=== PATIENT | male | born 1930 | race Caucasian/White ===

== ENCOUNTER → 2018-08-14 | Outpatient (CLI) | payer MEDICARE, OTHER ==
[2015-06-14 15:13] VITALS: BP 111/54
[~2018-08-14] MED LIST: AMLO5TAB10 PO; ATOR10TA60 PO; DABI150C PO; FURO-69 PO; OMEP20CA9 PO; REGADENOSON 0.4 MG/5 ML DISP.SYRIN. IV ONE; SOTA80TA48 PO; TAMS0.4C2 PO
--- NOTE | 2018-08-14 15:10 | RAD ---
MR#: [id number] Date of Study: 08/14/2018 Ordering Physician: XOCHILT HAWLEY Referring Physician: BINTA IZAGUIRRE Tech: Naya Burrows RT (R) (N) APPROVED REPORT Test Type: Pharmacological Stress Nurse/Tech: Alexa Holt R.N./Christi Feliciano RN Test Indications: Afib, CAD Cardiac History: Hypertension, CAD, AFIB Medications: See Electronic Medical Record Medical History: See Electronic Medical Record Resting ECG: Afib Resting Heart Rate: 86 bpm Resting Blood Pressure: 128/72mmHg Pretest Chest Pain: No chest pain Nurse/Tech Notes Lungs CTA, Heart rate irregular Consent: The procedure was explained to the patient in lay terms. Informed consent was witnessed. Jass eout was entered into [employer]. History and Stress Test performed by RT Lluvia (R) (N) Pharm. Details Pharmacologic stress testing was performed using 0.4mg per 5ml of regadenoson given intravenously ove r 7-10 seconds. Stress Symptoms Dyspnea, Chest pain 8/10 pressure, chest pain resolved at end of test. POST EXERCISE Reason for Termination: Infusion complete Max HR: 136 bpm Max Blood Pressure: 136/66mmHg Chest Pain: No. Arrhythmia: No. ST Change: No. INTERPRETATION Stress EKG Conclusion: Baseline EKG showed atrial fibrillation. No ischemic changes at peak stress. No arrhythmias. Imaging Protocol IMAGE PROTOCOL: Rest Tc-99m/stress Tc-99m 1 day Rest: Stress: Viability: Radiopharm.Tc99m YgrpzsjxvJd24k Sestamibi Dose11.2mCi 32mCi Duration 15min. 10min. Img Date 08/14/2018 08/14/2018 Inj-Img Dcvi62qav. 60min. Rest Admin Site:IV - Right WristAdministrator:JUAN ANTONIO Burrows Stress Admin Site: IV - Right WristAdministrator: RT Noa Teixeira)(N) STRESS DATA End Diast. Vol.110.0mlAv. Heart Rate91.0bpm End Syst. Vol.28.0mlCO Index BSA0.0L/min Myocardial Gcsu062.0gEject. Jllkdnze46.0% Stress Rates Pk. Fill Rate4.49EDV/secLVtime Pk. Fill 184.71msec Pk. Empty Rate4.20ESV/secLVtime Pk. Eject86.68msec 1/3 Pk. Fill2.26EDV/sec Stress Scores Regional WT0.00Summed WT5.00 Regional WM0.00Summed WM0.00 Study quality was good. Left Ventricular size was Normal at Rest and Stress. Lung uptake was . Left Ventricular ejection fraction is 75%. The rest and stress images show normal perfusion, normal contraction and thickening. LV Perf. Quant 17 Seg. SSS0.00 17 Seg. SRS7.00 17 Seg. SDS0.00 Stress Defect Extent (% LAD)0.00Rest Defect Extent (% LAD)0.60Rev. Defect Extent (% LAD)0.00 Stress Defect Extent (% LCX) 0.00Rest Defect Extent (% LCX)7.50Rev. Defect Extent (% LCX)0.00 Stress Defect Extent (% RCA)0.00Rest Defect Extent (% RCA)1.10Rev. Defect Extent (% RCA)0.00 Stress Defect Extent (% IAN)0.00Rest Defect Extent (% IAN)5.70Rev. Defect Extent (% IAN)0.00 Conclusion 1. Regadenoson cardioisotope stress test did not show any evidence of ischemia or infarct. 2. Normal left ventricular systolic function with ejection fraction calculated at 75%. 3. Low risk for cardiac events. Signed by : Xochilt Hawley, Electronically Approved : 08/14/2018 15:08:19
== END | disposition home or self-care (01) ==
LOC: NM 08:52
PROVIDERS: ATTEND Internal Medicine Cardiovascular Disease
DX: I25.10 Atherosclerotic heart disease of native coronary artery without angina pectoris (principal); I48.91 Unspecified atrial fibrillation; I10 Essential (primary) hypertension; Z79.01 Long term (current) use of anticoagulants; Z85.038 Personal history of other malignant neoplasm of large intestine
CPT/HCPCS: 78452; 93017; 96374; A9500; J2785

== ENCOUNTER → 2018-08-16 | Outpatient (CLI) | payer MEDICARE ==
[2015-06-14 15:13] VITALS: BP 111/54
[~2018-08-16] MED LIST changes: +OMEP20CA10 PO; -OMEP20CA9 PO; -REGADENOSON 0.4 MG/5 ML DISP.SYRIN. IV ONE
--- NOTE | 2018-08-16 12:37 | CARD ---
MR#: [id number] Date of Study: 08/16/2018 Ordering Physician: XOCHILT BETANCUR, Referring Physician: XOCHILT BETANCUR, Tech: Lulu Gorman APPROVED REPORT EXAM: Two-dimensional and M-mode echocardiogram with Doppler and color Doppler. Other Information Quality : Average INDICATION Atrial Fibrillation 2D DIMENSIONS RVDd3.6 (2.9-3.5cm)Left Atrium(2D)5.0 (1.6-4.0cm) IVSd1.3 (0.7-1.1cm)Aortic Root(2D)3.3 (2.0-3.7cm) LVDd5.8 (3.9-5.9cm)LVOT Diameter2.5 (1.8-2.4cm) PWd1.4 (0.7-1.1cm)LVDs3.0 (2.5-4.0cm) FS (%) 47.7 %SV130.6 ml LVEF(%)78.5 (>50%) Aortic Valve AoV Peak Hamlet.106.3cm/sAoV VTI16.8cm AO Peak GR.4.5mmHgLVOT Peak [place].65.3cm/s LVOT VTI 12.56cmAO Mean GR.2mmHg ANGEL (VMAX)2.97tx8GTL (VTI)3.59cm2 Pulmonary Valve PV Peak Nopetawv88.6cm/sPV Peak Grad.4mmHg Tricuspid Valve TR P. Wtpugkut612xy/sRAP ACGOHJUM9qcWc TR Peak Gr.48jxLbYSVF20wjIh Pulmonary Vein S1 Xlkjvuro18.3cm/sD2 Ijjgvfcd70.7cm/s PVa hcifkrir601fouo LEFT VENTRICLE The left ventricle is normal size. There is moderate concentric left ventricular hypertrophy. The lef t ventricular systolic function is normal. The ejection fraction is estimated at 55-60%. There is nor mal LV segmental wall motion. Diastology indeterminate due to atrial fribrillation. RIGHT VENTRICLE The right ventricle is normal size. There is normal right ventricular wall thickness. The right ventr icular systolic function is normal. ATRIA The left atrium is moderately dilated. The right atrium is borderline dilated. The interatrial septum is intact with no evidence for an atrial septal defect or patent foramen ovale as noted on 2-D or Do ppler imaging. AORTIC VALVE The aortic valve is normal in structure and function. Doppler and Color Flow revealed trace aortic re gurgitation. There is no significant aortic valvular stenosis. MITRAL VALVE The mitral valve is normal in structure and function. There is no evidence of mitral valve prolapse. There is no mitral valve stenosis. Doppler and Color-flow revealed trace mitral regurgitation. TRICUSPID VALVE The tricuspid valve is normal in structure and function. Doppler and Color Flow revealed trace to mil d tricuspid regurgitation with an estimated PAP of 34 mmHg. There is no tricuspid valve stenosis. PULMONIC VALVE The pulmonary valve is normal in structure and function. Doppler and Color Flow revealed mild pulmoni c valvular regurgitation. GREAT VESSELS The aortic root is normal in size. The IVC is normal in size and collapses >50% with inspiration. PERICARDIAL EFFUSION There is no evidence of significant pericardial effusion. Critical Notification Critical Value: No <Conclusion> The left ventricular systolic function is normal. The ejection fraction is estimated at 55-60%. There is normal LV segmental wall motion. The left atrium is moderately dilated. Trace mitral regurgitation. Trace to mild tricuspid regurgitation with an estimated PAP of 34 mmHg. There is no evidence of significant pericardial effusion. Signed by : Xochilt Betancur, Electronically Approved : 08/16/2018 12:35:35
--- NOTE | 2018-08-16 13:27 | RAD ---
MR#: [id number] Date of Study: 08/16/2018 Ordering Physician: XOCHILT HAWLEY, Referring Physician: XOCHILT HAWLEY, Tech: Lulu Hughes RDMS, SIRISHAT, RTR APPROVED REPORT Patient Location : OUT-PATIENT Indications Lower Extremity Edema : Bilateral Greater Saphenous Veins (GSV) Significant venous relux noted in the RIGHT GSV at the following levels : Superficial Femoral Junctio n, Proximal Thigh, Mid Thigh, Distal Thigh, Proximal Calf, Mid Calf, Distal Calf Significant venous relux noted in the LEFT GSV at the following levels : Superficial Femoral Junction , Proximal Thigh, Mid Thigh, Distal Thigh, Proximal Calf, Mid Calf, Distal Calf Lesser Saphenous Veins (LSV) Significant venous reflux is noted in the Bilateral LSV. Findings Grayscale images of the bilateral saphenofemoral junctions, greater and lesser saphenous veins do not reveal any obvious evidence of thrombus. Reflux is noted in the bilateral greater saphenous veins. On the right the great saphenous vein measu res 6.1 mm and has a reflux time of 4.2 seconds. On the left the great saphenous vein measures 7.7 mm and a reflux time of 1.8 seconds. The bilateral lesser saphenous veins show evidence of reflux with the right lesser saphenous vein renaldo suring 3.3 mm and having a reflux time of 4.2 seconds in the left lesser saphenous vein measuring 4.3 mm with a reflux time of 3.7 seconds. Critical Notification Critical Value: No <Conclusion> Significant reflux noted in the bilateral greater and lesser saphenous veins. Signed by : Nishant Chávez, Electronically Approved : 08/16/2018 13:24:53
--- NOTE | 2018-08-16 13:31 | RAD ---
MR#: [id number] Date of Study: 08/16/2018 Ordering Physician: XOCHILT HAWLEY, Referring Physician: XOCHILT HAWLEY Tech: Lulu Hughes RDMS, SIRISHAT, RTR APPROVED REPORT Patient Location: OUT-PATIENT Indications Peripheral Vascular Disease with numbness and burning in the feet VELOCITY AND DOPPLER WAVEFORM ANALYSIS RIGHT cm/secWaveformSeverity LEFT cm/secWaveform Severity pCFA 76.5pCFA 61.0 Prof Fem Art. 50.0Prof Fem Art. 65.2 Fem Art Prox. 74.7Fem Art Prox. 63.6 Fem Art Mid. 113.5Fem Art Mid. 61.5 Fem Art Dist. 83.9Fem Art Dist. 138.8 Pop Art(AK) 45.8Pop Art(AK) 55.0 MACHINE GUIDE BASE WINDER Dist. 71.5PTA Dist. 118.2 Per Art Prox. 81.0Per Art Prox. 30.1 MAUREEN Prox. 43.5ATA Prox. 34.1 DPA 71.5DPA 70.1 Findings Grayscale images of the bilateral lower ext arterial vessels reveal mild to moderate diffuse atherosc lerotic plaque. Spectral waveforms and color Doppler within the right lower extremity and left lower ext arterial leonid e to the ankle level are mostly biphasic and triphasic. No focal high-grade stenosis at that identifi ed. There is three vessel run-off below the knee. Critical Notification Critical Value: No <Conclusion> No significant lower extremity arterial disease. Signed by : Nishant Chávez, Electronically Approved : 08/16/2018 13:29:03
== END | disposition home or self-care (01) ==
LOC: US 08:42
PROVIDERS: ATTEND Internal Medicine Cardiovascular Disease
DX: I70.293 Other atherosclerosis of native arteries of extremities, bilateral legs (principal); I51.7 Cardiomegaly; I48.2 Chronic atrial fibrillation
CPT/HCPCS: 93306; 93925; 93970

== ENCOUNTER → 2018-09-04 | Outpatient (CLI) | payer MEDICARE ==
[2015-06-14 15:13] VITALS: BP 111/54
--- NOTE | 2018-09-05 11:53 | RAD ---
MR#: [id number] Date of Study: 09/04/2018 Ordering Physician: XOCHILT HAWLEY, Referring Physician: XOCHILT HAWLEY, Tech: Lulu Hughes RDMS, SIRISHAT, RTR APPROVED REPORT Bilateral Lower Extremity Venous Study for DVT Patient Location: OUT-PATIENT Indications Lower Extremity Edema: Bilateral Findings Bilateral greater saphenous veins appear to be successfully ablated. The bilateral lower extremity deep veins were evaluated for thrombus with color Doppler, spectral and grayscale images. On the right the grayscale images of the common femoral, superficial femoral and popliteal veins do n ot demonstrate any evidence of thrombus and these veins appear to be compressible. The below-knee vei ns were not well visualized but grossly appear to be compressible. Spectral imaging and color Doppler do not reveal any evidence of obstruction to flow with normal respirophasic variation above the knee . Below the knee there is spontaneous flow noted. On the left, the grayscale images of the common femoral, superficial femoral and popliteal veins do n ot demonstrate any evidence of thrombus and these veins appear to be compressible. The below-knee vei n grossly appear to be compressible. Spectral imaging and color Doppler do not reveal any evidence of obstruction to flow with normal respirophasic variation above the knee. The below-knee veins demonst rate spontaneous flow. Critical Notification Critical Value: No <Conclusion> 1. Successful GSV ablation. 2. No evidence of DVT. Signed by : Nishant Chávez, Electronically Approved : 09/05/2018 11:52:53
== END | disposition home or self-care (01) ==
LOC: US 15:42
PROVIDERS: ATTEND Internal Medicine Cardiovascular Disease
DX: I87.2 Venous insufficiency (chronic) (peripheral) (principal); R60.0 Localized edema
CPT/HCPCS: 93970

== ENCOUNTER → 2020-01-21 | Outpatient (CLI) | payer MEDICARE ==
[2015-06-14 15:13] VITALS: BP 111/54
[~2020-01-21] MED LIST changes: +APIX5TAB PO; +FURO-68 PO; +METO25TA4 PO; -OMEP20CA10 PO; +OMEP20CA16 PO; +POTA10TA6 PO; +TAMS0.4C97 PO
--- NOTE | 2020-01-22 07:56 | CARD ---
MR#: [id number] Date of Study: 01/21/2020 Ordering Physician: XOCHILT HAWLEY, Referring Physician: XOCHILT HAWLEY Tech: Ritika Garcia RDCS APPROVED REPORT EXAM: Two-dimensional and M-mode echocardiogram with Doppler and color Doppler. Other Information Quality : Good Rhythm : Atrial Fibrillation INDICATION Permanent Atrial Fibrillation 2D DIMENSIONS RVDd3.2 (2.9-3.5cm)Left Atrium(2D)5.6 (1.6-4.0cm) IVSd1.2 (0.7-1.1cm)Aortic Root(2D)3.1 (2.0-3.7cm) LVDd5.2 (3.9-5.9cm)LVOT Diameter2.4 (1.8-2.4cm) PWd1.2 (0.7-1.1cm)LVDs4.0 (2.5-4.0cm) FS (%) 23.7 %SV60.6 ml LVEF(%)46.9 (>50%) Aortic Valve AoV Peak Hamlet.117.3cm/sAoV VTI18.3cm AO Peak GR.5.5mmHgLVOT Peak [place].68.2cm/s LVOT VTI 13.02cmAO Mean GR.3mmHg ANGEL (VMAX)2.68cu6GFO (VTI)3.14cm2 Mitral Valve MV E Algpdnvs37.8cm/sMV DECEL RROU794gw MV A Fbswnbbo13.9cm/sMV OUZ96qi E/A Ratio2.1MVA (PHT)4.65cm2 TDI E/Lateral E'19.7E/Medial E'16.4 Tricuspid Valve TR P. Bmzgktvl516vm/sRAP KTKUKEWS9opTk TR Peak Gr.08ksBrHVEU83ebYs Pulmonary Vein S1 Xlsmcsxb72.6cm/sD2 Ycydbcua08.2cm/s LEFT VENTRICLE The left ventricle is normal size. There is mild concentric left ventricular hypertrophy. The left ve ntricular systolic function is normal. The Ejection Fraction is 55-60%. There is normal LV segmental wall motion. RIGHT VENTRICLE The right ventricle is normal size. The right ventricular systolic function is normal. ATRIA The left atrium is moderately dilated. The right atrium size is normal. The interatrial septum is int act with no evidence for an atrial septal defect or patent foramen ovale as noted on 2-D or Doppler i maging. AORTIC VALVE The aortic valve is calcified but opens well. Doppler and Color Flow revealed trace aortic regurgitat ion. There is no significant aortic valvular stenosis. MITRAL VALVE The mitral valve is calcified but opens well. There is no evidence of mitral valve prolapse. There is no mitral valve stenosis. Doppler and Color-flow revealed mild mitral regurgitation. TRICUSPID VALVE The tricuspid valve is normal in structure and function. Doppler and Color Flow revealed trace to mil d tricuspid regurgitation. The PA pressure was estimated at 34 mmHg. There is no tricuspid valve sten osis. PULMONIC VALVE The pulmonic valve is not well visualized. Doppler and Color Flow revealed trace pulmonic valvular re gurgitation. There is no pulmonic valvular stenosis. GREAT VESSELS The aortic root is normal in size. The ascending aorta is mildly dilated at 3.7 cm. The IVC is normal in size and collapses >50% with inspiration. PERICARDIAL EFFUSION There is no evidence of significant pericardial effusion. Critical Notification Critical Value: No <Conclusion> The left ventricular systolic function is normal. The Ejection Fraction is 55-60%. There is normal LV segmental wall motion. The left atrium is moderately dilated. Mild mitral regurgitation. Trace to mild tricuspid regurgitation. The PA pressure was estimated at 34 mmHg. There is no evidence of significant pericardial effusion. Signed by : Xochitl Hawley, Electronically Approved : 01/22/2020 07:55:24
== END | disposition home or self-care (01) ==
LOC: ECHO 14:03
PROVIDERS: ATTEND Internal Medicine Cardiovascular Disease
DX: I08.3 Combined rheumatic disorders of mitral, aortic and tricuspid valves (principal); I48.11 Longstanding persistent atrial fibrillation
CPT/HCPCS: 93306

== ENCOUNTER 2020-01-24 10:24 | Inpatient (IN) | payer MEDICARE ==
[~2020-01-24] VITALS: Ht 177.8 cm; Wt 105.0 kg
[~2020-01-24 10:24] MED LIST changes: -APIX5TAB PO; -FURO-68 PO; -METO25TA4 PO; -POTA10TA6 PO; -TAMS0.4C97 PO
--- NOTE | 2020-01-24 11:38 | PHYS DOC ---
Past Medical History Past Medical History: A-Fib, Cancer, Hypertension, Other Additional Past Medical Histor: COLON CANCER, SKIN CANCER Past Surgical History: Cancer Surgery, Knee Replacement Additional Past Surgical Histo: COLON CANCER SURGERY Smoking Status: Former Smoker Alcohol Use: None General Adult EDM: Chief Complaint: MECHANICAL FALL HPI: HPI: Patient is a 89 year old male who presents with daughter brings patient in today and states that on he got up without his walker and try to turn and lost his balance and fell. She states he supposed to use his walker but at times will get up without it. She states that he has fallen twice this week. She states the first time the fall was not seen but the mother heard him fall on the hardwood floor. She states that the rest of the week since he has been able to get up and walk with his walker but today could not stand it. She states that he has right knee swelling which is 2+ and pain with standing. She states that he also has a skin tear on the right lateral forearm that they have been covering and using antibiotic ointment. Patient seems somewhat unreliable when asking about pain as he does not answer me right away and laughs and states ya it has been hurting. He does follow direction but I must show him first what I need him to do and then he does it. Daughter states that he is acting normal for himself. He also complains of elbow pain with movement and is unable to fully extend the elbow straight. Right elbow is 1+ swollen. I also noticed that the patients right leg is outward rotated and when I palpated the hip and pelvis and moved at the joint he does not state that he has any pain. The hip does not look deformed or swollen. Vital signs are wnl. No redness or heat to the joints effected. Daughter and patient denies loc, dizziness, headache, vision changes, abdominal pain, diarrhea, fever, chest pain, soa, nausea, vomiting. Patient could not give me a number or a quality of pain. Again daughter states this is his normal. Patient is in no distress at this time and is smiling as I am examining him. He seems to be in no distress or pain. Daughter states as long as the patient is laying down he seems to be in no pain. Review of Systems: Review of Systems: Constitutional: Denies fever or chills. Fall. [] Eyes: Denies change in visual acuity. [] HENT: Denies nasal congestion or sore throat. [] Respiratory: Denies cough or shortness of breath. [] Cardiovascular: Denies chest pain or edema. Swelling to the right knee. [] GI: Denies abdominal pain, nausea, vomiting, bloody stools or diarrhea. [] : Denies dysuria. [] Musculoskeletal: Denies back pain. Right knee, right elbow joint pain. Not fully extend the right elbow. [] Integument: Denies rash. Right lateral forearm skin tear. [] Neurologic: Denies headache, focal weakness or sensory changes. [] Endocrine: Denies polyuria or polydipsia. [] Lymphatic: Denies swollen glands. [] Psychiatric: Denies depression or anxiety. [] Heart Score: Risk Factors: Risk Factors: DM, Current or recent (<one month) smoker, HTN, HLP, family history of CAD, obesity. Risk Scores: Score 0 - 3: 2.5% MACE over next 6 weeks - Discharge Home Score 4 - 6: 20.3% MACE over next 6 weeks - Admit for Clinical Observation Score 7 - 10: 72.7% MACE over next 6 weeks - Early Invasive Strategies Allergies: Allergies: Allergies Coded Allergies Type Severity Reaction Last Updated Verified No Known Drug Allergies 04/30/15 No Physical Exam: PE: Constitutional: Well developed, well nourished, no acute distress, non-toxic appearance. [] HENT: Normocephalic, atraumatic, bilateral external ears normal, oropharynx moist, no oral exudates, nose normal. [] Eyes: PERRLA, EOMI, conjunctiva normal, no discharge. [] Neck: Normal range of motion, no tenderness, supple, no stridor. [] Cardiovascular:Heart rate regular rhythm, no murmur [] Lungs & Thorax: Bilateral breath sounds clear to auscultation [] Abdomen: Bowel sounds normal, soft, no tenderness, no masses, no pulsatile masses. [] Skin: Warm, dry, no erythema, no rash. [] Back: No tenderness, no CVA tenderness. [] Extremities: No tenderness, no cyanosis, no clubbing, right knee and elbow ROM not intact, right knee 2+ edema. [] Neurologic: Alert and oriented X 3, normal motor function, normal sensory function, no focal deficits noted. [] Psychologic: Affect normal, judgement normal, mood normal. [] Current Patient Data: Vital Signs: Vital Signs Date Time Temp Pulse Resp B/P (MAP) Pulse Ox O2 Delivery O2 Flow Rate FiO2 01/24/20 11:00 97.9 112 20 153/77 (102) 97 Room Air 97.9 EKG: EK and read by Dr. Mayers as A. fib and no STEMI. [] Radiology/Procedures: Radiology/Procedures: [] Impression: [facility] [address] [place] [address] IMAGING REPORT Signed PATIENT: MARY LOU COLEMAN ACCOUNT: [id number] : 1930 LOCATION: ER AGE: 89 SEX: M EXAM STATUS: REG ER ORD. PHYSICIAN: JAQUELIN ALEXANDER APRN REASON: fall on , pain to right elbow PROCEDURE: ELBOW RIGHT 2V Examination: ELBOW RIGHT 2V History: Reason: fall on , pain to right elbow / Spl. Instructions: / History: Comparison/Correlation: None Findings: 2 views of the right elbow were obtained. Frontal view is limited due to partial flexion of the adrenal. True 90 degree lateral view of the right elbow is not provided. Osteopenia is present. Advanced degenerative changes of the right elbow joint are present. Spurring of the radial head noted. No displaced fracture or bone destruction. Minimal enthesopathy at the distal triceps tendon attachment site is noted. Bony densities anterior to the right elbow are present and of indeterminate significance. Impression: Advanced degenerative changes about the elbow. No suspicious fracture or bone destruction on this limited exam. Electronically signed by: Zafar Antonio MD (01/24/2020 12:10 PM) [id number] DICTATED and SIGNED BY: ZAFAR ANTONIO MD DATE: 01/24/20 1210 [facility] [address] [place] [address] IMAGING REPORT Signed PATIENT: MARY LOU COLEMAN ACCOUNT: [id number] : 1930 LOCATION: ER AGE: 89 SEX: M EXAM STATUS: REG ER ORD. PHYSICIAN: JAQUELIN ALEXANDER APRN REASON: fall PROCEDURE: CT HEAD AND CERVICAL SPINE WO Examination: CT HEAD AND CERVICAL SPINE WO History: Fall, pain Comparison/Correlation: None Findings: Axial images of the head and cervical spine were obtained without contrast. Sagittal and coronal reformatted images of the cervical spine were provided. Atrophy is present. Chronic ischemic change of the white matter is noted. No intracranial hemorrhage, midline shift, or mass effect. No depressed skull fracture. Atlantoaxial joint degenerative remodeling is advanced. Minimal anterolisthesis of C3 in relation to C4 is present. Minimal retrolisthesis of C5 in relation C6 noted. Minimal anterolisthesis of C7-T1 noted. Minimal retrolisthesis of C5 in relation to C6 is present. Severe disc space narrowing from C5 to T1 is present. Bony encroachment on neural foramina is especially seen at C5-6 bilaterally with severe neural foraminal narrowing. Facet joint degenerative narrowing bilaterally is present. Temporomandibular joint degenerative narrowing bilaterally is present with spurring. Disc osteophyte complex at C5-6 is present. Mild spinal canal stenosis is present at this level. 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 Impression: No intracranial hemorrhage. Advanced degenerative changes of the cervical spine. No fracture or suspicious malalignment. PQRS Compliance Statement: One or more of the following individualized dose reduction techniques were utilized for this examination: 1. Automated exposure control 2. Adjustment of the mA and/or kV according to patient size 3. Use of iterative reconstruction technique Electronically signed by: Zafar Antonio MD (01/24/2020 12:08 PM) [id number] DICTATED and SIGNED BY: ZAFAR ANTONIO MD DATE: 01/24/20 1208 [facility] [address] [place], [place] [id number] IMAGING REPORT Signed PATIENT: MARY LOU COLEMAN ACCOUNT: [id number] : 1930 LOCATION: ER AGE: 89 SEX: M EXAM STATUS: REG ER ORD. PHYSICIAN: JAQUELIN ALEXANDER APRN REASON: ams PROCEDURE: PORTABLE CHEST 1V Examination: PORTABLE CHEST 1V History: Reason: ams / Comparison/Correlation: None Findings: Semiupright AP frontal view the chest was obtained. Motion at the upper thoracic level may limit assessment. Heart size is borderline and this may be technique related. Pulmonary vasculature is within normal limits. No pneumothorax, infiltrate, or significant pleural effusion. Costophrenic angles are not fully included. Bony structures are intact. Severe degenerative change of the right glenohumeral joint is present. Impression: No acute disease. Electronically signed by: Zafar Antonio MD (01/24/2020 12:45 PM) [id number] DICTATED and SIGNED BY: ZAFAR ANTONIO MD DATE: 01/24/20 1245 [facility] [address] [place], [place] [id number] IMAGING REPORT Signed PATIENT: MARY LOU COLEMAN ACCOUNT: [id number] : 1930 LOCATION: ER AGE: 89 SEX: M EXAM STATUS: REG ER ORD. PHYSICIAN: JAQUELIN ALEXANDER APRN REASON: fall, RT ARM PAIN PROCEDURE: FOREARM RIGHT FOREARM RIGHT 01/24/2020 11:22 AM INDICATION: Fall, right arm pain COMPARISON: None available. TECHNIQUE: 2 views of the right forearm are provided. FINDINGS/ IMPRESSION: There is no acute fracture or dislocation. Joint spaces are maintained. Bone mineralization is within normal limits. Regional soft tissues are within normal limits. There is no soft tissue gas or osseous erosion. No radiopaque foreign body. Vascular calcifications are present. Electronically signed by: Kobe Aguilera MD (01/24/2020 12:48 PM) [facility] DICTATED and SIGNED BY: KOBE AGUILERA MD DATE: 01/24/20 1248 [facility] [address] [place], [place] [id number] IMAGING REPORT Signed PATIENT: MARY LOU COLEMAN ACCOUNT: [id number] : 1930 LOCATION: ER AGE: 89 SEX: M EXAM STATUS: REG ER ORD. PHYSICIAN: JAQUELIN ALEXANDER APRN REASON: fall, BACK PAIN PROCEDURE: THORACIC SPINE 3V LUMBAR SPINE 2-3V, THORACIC SPINE 3V 01/24/2020 11:22 AM INDICATION: Fall, back pain COMPARISON: None available. TECHNIQUE: 3 views of the thoracic spine 3 views lumbar spine are provided. FINDINGS/ IMPRESSION: 1. Minimal dextro convex curvature of the thoracic spine centered at T4-T5. Mild disc height loss at the upper thoracic spine. Moderate anterior and lateral marginal osteophytosis the thoracic spine. No acute fracture or compression deformity is visualized. 2. There are 5 nonrib-bearing lumbar type vertebral bodies. Minimal dextro convex curvature of the lumbar spine centered at L3-L4. There is minimal retrolisthesis of L2 on L3 and L3 on L4. Grade 1 anterolisthesis of L4 on L5. Moderate disc height loss is identified at L2-L3 and L4-L5. Minimal inferior endplate concavity at L2 without significant height loss (age indeterminate). If there is clinical concern for acute compression deformity, further evaluation with MRI may be of benefit. Moderate intramarginal osteophytosis at L3-L4. Moderate to advanced facet arthropathy is noted. Versus portions of the sacrum appear intact. Electronically signed by: Kobe Aguilera MD (01/24/2020 12:51 PM) [facility] DICTATED and SIGNED BY: KOBE AGUILERA MD DATE: 01/24/[address] [place] [address] [address] [place] [address] IMAGING REPORT Signed PATIENT: MARY LOU COLEMAN ACCOUNT: [id number] : 1930 LOCATION: ER AGE: 89 SEX: M EXAM STATUS: REG ER ORD. PHYSICIAN: JAQUELIN ALEXANDER APRN REASON: fall, ZEHRA HIP PAIN PROCEDURE: HIP BILATERAL WITH PELVIS Examination: HIP BILATERAL WITH PELVIS History: Reason: fall, ZEHRA HIP PAIN / Spl. Instructions: / History: Comparison/Correlation: No Findings: Frontal view of the pelvis was obtained. Frontal and frog-leg lateral views of the right hip were obtained. Frontal and lateral views of the left hip was provided. Mild cingulate joint degenerative changes present. Symmetric. No displaced fracture or bone destruction. Osteopenia is present. Subtle sclerotic involvement of the femoral heads bilaterally is evident raising question of mild avascular necrosis. Femoral head contours are unremarkable Impression: No acute processes. Consider further imaging if occult fracture is a persistent concern. Electronically signed by: Zafar Antonio MD (01/24/2020 12:48 PM) [id number] DICTATED and SIGNED BY: ZAFAR ANTONIO MD DATE: 01/24/20 1248 [facility] [address] [place] [address] IMAGING REPORT Signed PATIENT: MARY LOU COLEMAN ACCOUNT: [id number] : 1930 LOCATION: ER AGE: 89 SEX: M EXAM STATUS: REG ER ORD. PHYSICIAN: JAQUELIN ALEXANDER APRN REASON: FALL, RT KNEE PAIN, SWELLING PROCEDURE: KNEE RIGHT 3V KNEE RIGHT 3V 01/24/2020 1:14 PM INDICATION: Fall, right knee pain COMPARISON: None available. TECHNIQUE: 3 views of the right knee are provided. FINDINGS/ IMPRESSION: 1. No acute fracture or dislocation. Large knee joint effusion. 2. 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 Mild lateral femorotibial joint space narrowing and marginal osteophytosis. Severe patellofemoral joint space narrowing with marginal osteophytosis. Patellar is poorly visualized, although favored to be intact. 3. Vascular calcifications are present. Regional soft tissue swelling is noted. Tibia and fibula appear intact. Electronically signed by: Kobe Aguilera MD (01/24/2020 12:52 PM) [facility] DICTATED and SIGNED BY: KOBE AGUILERA MD DATE: 01/24/20 1251 Course & Med Decision Making: Course & Med Decision Making Pertinent Labs and Imaging studies reviewed. (See chart for details) Alert and oriented to himself and place. Patient was not able to tell me the year or month. Skin otherwise pink warm and dry. Abdomen is soft nontender and there is no bruising. No crepitus or pain elicited over the chest or the ribs. Lungs are clear to auscultation all lobes. Full range of motion of shoulders bilaterally without swelling or deformities. No tenderness is elicited or bruising seen to his back or spine. He has full range of motion of his neck and there is no tenderness or bruising. PERRLA. Patient does follow me in the room with his eyes. Patient does not seem to be in any pain and is smiling at me while I am examining the patient. He denies any pain while sitting in the bed. It is discussed with the daughter about admission. She agrees that it is safest for the patient to be admitted for antibiotics and physical therapy evaluation. She states that no one can be there to take care of him throughout the night and last night he sat in his brief and urinated on himself due to not being able to get up. Son states to Lakeisha GALAN that he has been acting more disoriented lately. With reexamination, patient is sleeping and in no distress. I have spoken to the patients sons and they states he has been sleeping and looks to be comfortable and in no pain. I agree with the sons as the patient is in no distress at this time. I have spoken to Dr Garcia for admission. [] Radha Disclaimer: Radha Disclaimer: This electronic medical record was generated, in whole or in part, using a voice recognition dictation system. Departure Departure Impression: Primary Impression: UTI (urinary tract infection) Qualified Codes: N39.0 - Urinary tract infection, site not specified Additional Impression: AMS (altered mental status) Qualified Codes: R41.82 - Altered mental status, unspecified Disposition: ADMITTED INPATIENT Admitting Physician: Venancio Garcia Condition: STABLE Referrals: VENANCIO GARCIA MD (PCP) Justicifation of Admission Dx: Justifications for Admission: Justification of Admission Dx: Yes Comments: JAQUELIN [employer] Jan 24, 2020 11:38
--- NOTE | 2020-01-24 12:10 | RAD ---
Examination: CT HEAD AND CERVICAL SPINE WO History: Fall, pain Comparison/Correlation: None Findings: Axial images of the head and cervical spine were obtained without contrast. Sagittal and coronal reformatted images of the cervical spine were provided. Atrophy is present. Chronic ischemic change of the white matter is noted. No intracranial hemorrhage, midline shift, or mass effect. No depressed skull fracture. Atlantoaxial joint degenerative remodeling is advanced. Minimal anterolisthesis of C3 in relation to C4 is present. Minimal retrolisthesis of C5 in relation C6 noted. Minimal anterolisthesis of C7-T1 noted. Minimal retrolisthesis of C5 in relation to C6 is present. Severe disc space narrowing from C5 to T1 is present. Bony encroachment on neural foramina is especially seen at C5-6 bilaterally with severe neural foraminal narrowing. Facet joint degenerative narrowing bilaterally is present. Temporomandibular joint degenerative narrowing bilaterally is present with spurring. Disc osteophyte complex at C5-6 is present. Mild spinal canal stenosis is present at this level. 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 Impression: No intracranial hemorrhage. Advanced degenerative changes of the cervical spine. No fracture or suspicious malalignment. PQRS Compliance Statement: One or more of the following individualized dose reduction techniques were utilized for this examination: 1. Automated exposure control 2. Adjustment of the mA and/or kV according to patient size 3. Use of iterative reconstruction technique Electronically signed by: Zafar Milan MD (01/24/2020 12:08 PM) [id number]
--- NOTE | 2020-01-24 12:13 | RAD ---
Examination: ELBOW RIGHT 2V History: Reason: fall on , pain to right elbow / Spl. Instructions: / History: Comparison/Correlation: None Findings: 2 views of the right elbow were obtained. Frontal view is limited due to partial flexion of the adrenal. True 90 degree lateral view of the right elbow is not provided. Osteopenia is present. Advanced degenerative changes of the right elbow joint are present. Spurring of the radial head noted. No displaced fracture or bone destruction. Minimal enthesopathy at the distal triceps tendon attachment site is noted. Bony densities anterior to the right elbow are present and of indeterminate significance. Impression: Advanced degenerative changes about the elbow. No suspicious fracture or bone destruction on this limited exam. Electronically signed by: Zafar Milan MD (01/24/2020 12:10 PM) [id number]
--- NOTE | 2020-01-24 12:48 | RAD ---
Examination: PORTABLE CHEST 1V History: Reason: ams / Comparison/Correlation: None Findings: Semiupright AP frontal view the chest was obtained. Motion at the upper thoracic level may limit assessment. Heart size is borderline and this may be technique related. Pulmonary vasculature is within normal limits. No pneumothorax, infiltrate, or significant pleural effusion. Costophrenic angles are not fully included. Bony structures are intact. Severe degenerative change of the right glenohumeral joint is present. Impression: No acute disease. Electronically signed by: Zafar Milan MD (01/24/2020 12:45 PM) [id number]
--- NOTE | 2020-01-24 12:51 | RAD ---
FOREARM RIGHT 01/24/2020 11:22 AM INDICATION: Fall, right arm pain COMPARISON: None available. TECHNIQUE: 2 views of the right forearm are provided. FINDINGS/ IMPRESSION: There is no acute fracture or dislocation. Joint spaces are maintained. Bone mineralization is within normal limits. Regional soft tissues are within normal limits. There is no soft tissue gas or osseous erosion. No radiopaque foreign body. Vascular calcifications are present. Electronically signed by: Bibiana Garcia MD (01/24/2020 12:48 PM) [facility]
--- NOTE | 2020-01-24 12:51 | RAD ---
Examination: HIP BILATERAL WITH PELVIS History: Reason: fall, ZEHRA HIP PAIN / Spl. Instructions: / History: Comparison/Correlation: No Findings: Frontal view of the pelvis was obtained. Frontal and frog-leg lateral views of the right hip were obtained. Frontal and lateral views of the left hip was provided. Mild cingulate joint degenerative changes present. Symmetric. No displaced fracture or bone destruction. Osteopenia is present. Subtle sclerotic involvement of the femoral heads bilaterally is evident raising question of mild avascular necrosis. Femoral head contours are unremarkable Impression: No acute processes. Consider further imaging if occult fracture is a persistent concern. Electronically signed by: Zafar Milan MD (01/24/2020 12:48 PM) [id number]
--- NOTE | 2020-01-24 12:54 | RAD ---
LUMBAR SPINE 2-3V, THORACIC SPINE 3V 01/24/2020 11:22 AM INDICATION: Fall, back pain COMPARISON: None available. TECHNIQUE: 3 views of the thoracic spine 3 views lumbar spine are provided. FINDINGS/ IMPRESSION: 1. Minimal dextro convex curvature of the thoracic spine centered at T4-T5. Mild disc height loss at the upper thoracic spine. Moderate anterior and lateral marginal osteophytosis the thoracic spine. No acute fracture or compression deformity is visualized. 2. There are 5 nonrib-bearing lumbar type vertebral bodies. Minimal dextro convex curvature of the lumbar spine centered at L3-L4. There is minimal retrolisthesis of L2 on L3 and L3 on L4. Grade 1 anterolisthesis of L4 on L5. Moderate disc height loss is identified at L2-L3 and L4-L5. Minimal inferior endplate concavity at L2 without significant height loss (age indeterminate). If there is clinical concern for acute compression deformity, further evaluation with MRI may be of benefit. Moderate intramarginal osteophytosis at L3-L4. Moderate to advanced facet arthropathy is noted. Versus portions of the sacrum appear intact. Electronically signed by: Bibinaa Garcia MD (01/24/2020 12:51 PM) [facility]
--- NOTE | 2020-01-24 12:55 | RAD ---
KNEE RIGHT 3V 01/24/2020 1:14 PM INDICATION: Fall, right knee pain COMPARISON: None available. TECHNIQUE: 3 views of the right knee are provided. FINDINGS/ IMPRESSION: 1. No acute fracture or dislocation. Large knee joint effusion. 2. 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 Mild lateral femorotibial joint space narrowing and marginal osteophytosis. Severe patellofemoral joint space narrowing with marginal osteophytosis. Patellar is poorly visualized, although favored to be intact. 3. Vascular calcifications are present. Regional soft tissue swelling is noted. Tibia and fibula appear intact. Electronically signed by: Bibiana Garcia MD (01/24/2020 12:52 PM) [facility]
[2020-01-24 13:10] LABS: BASO % 0 % (0-3); EOS % 0 % (0-3); HEMATOCRIT 48.5 % (39.0-53.0); HEMOGLOBIN 16.6 g/dL (13.0-17.5); LYMPH # 1.3 x10^3/uL (1.0-4.8); LYMPH % 9 % (24-48); MEAN CORPUSCULAR HEMOGLOBIN 35 pg (25-35); MEAN CORPUSCULAR HGB CONC 34 g/dL (31-37); MEAN CORPUSCULAR VOLUME 101 fL (79-100); MONO # 2.5 x10^3/uL (0.0-1.1); MONO % 17 % (0-9); NEUT # 10.7 x10^3/uL (1.8-7.7); NEUT % 74 % (31-73); PLATELET COUNT 138 x10^3/uL (140-400); RED BLOOD COUNT 4.78 x10^6/uL (4.30-5.70); RED CELL DISTRIBUTION WIDTH 12.9 % (11.5-14.5); WHITE BLOOD COUNT 14.5 x10^3/uL (4.0-11.0)
[2020-01-24 13:27] LABS: CALCIUM 8.6 mg/dL (8.5-10.1); CREATININE 1.4 mg/dL (0.7-1.3); GFR 47.7; POTASSIUM 3.5 mmol/L (3.5-5.1)
[2020-01-24 13:33] LABS: ALBUMIN/GLOBULIN RATIO 0.7 (1.0-1.7); TOTAL BILIRUBIN 2.5 mg/dL (0.2-1.0); TOTAL PROTEIN 7.5 g/dL (6.4-8.2)
[2020-01-24 13:41] LABS: BILIRUBIN,URINE NEGATIVE (NEG); CLARITY,URINE CLOUDY; COLOR,URINE AMBER; NITRITE,URINE POSITIVE (NEG); PROTEIN,URINE 30 mg/dL (NEG-TRACE)
[2020-01-24 13:51] LABS: BACTERIA,URINE 0 /HPF (0-FEW); WBC,URINE TNTC /HPF (0-4)
[2020-01-24 14:13] LABS: % BANDS 4 % (0-9); % LYMPHS 9 % (24-48); % MONOS 12 % (0-10); % SEGS 75 % (35-66); PLT ESTIMATE ADEQUATE (ADEQUATE)
[2020-01-24] MEDS ORDERED: cefTRIAXone IV Push 1 GM VIAL. IVP ONE (14:15)
[2020-01-24] MEDS ORDERED: IV NORMAL SALINE 1000ML BAG 1,000 ML IV ONE (14:45)
[2020-01-24 18:00] VITALS: BP 134/75
[2020-01-24] MEDS ORDERED: FURO-68 PO (19:21)
[2020-01-24] MEDS ORDERED: APIX5TAB PO (19:21)
[2020-01-24] MEDS ORDERED: METO25TA4 PO (19:21)
[2020-01-24] MEDS ORDERED: TAMS0.4C97 PO (19:21)
[2020-01-24] MEDS ORDERED: POTA10TA6 PO (19:21)
[2020-01-24] MEDS: ATORVASTATIN CALCIUM 10 MG TABLET. PO SCH (21:12)
[2020-01-24] MEDS: HYDROcodone/APAP 7.5/325MG 1 TAB TABLET PO PRN (21:12)
[2020-01-24] MEDS: METOPROLOL TART IMMED RELEASE 25 MG TABLET. PO SCH (21:12)
[2020-01-24] MEDS: TAMSULOSIN 0.4 MG CAP.ER.24H. PO SCH (21:12)
[2020-01-24] MEDS: APIXABAN 5 MG TABLET. PO SCH (21:13)
[2020-01-24 23:00] VITALS: BP 142/80
[2020-01-25 03:00] VITALS: BP 145/74
[2020-01-25 07:00] VITALS: BP 117/65
[2020-01-25 07:37] LABS: BASO % 0 % (0-3); EOS % 0 % (0-3); HEMATOCRIT 44.4 % (39.0-53.0); HEMOGLOBIN 15.4 g/dL (13.0-17.5); LYMPH # 1.2 x10^3/uL (1.0-4.8); LYMPH % 9 % (24-48); MEAN CORPUSCULAR HEMOGLOBIN 35 pg (25-35); MEAN CORPUSCULAR HGB CONC 35 g/dL (31-37); MEAN CORPUSCULAR VOLUME 101 fL (79-100); MONO # 1.8 x10^3/uL (0.0-1.1); MONO % 13 % (0-9); NEUT % 78 % (31-73); PLATELET COUNT 129 x10^3/uL (140-400); RED BLOOD COUNT 4.41 x10^6/uL (4.30-5.70); RED CELL DISTRIBUTION WIDTH 13.2 % (11.5-14.5)
[2020-01-25] MEDS ORDERED: POTASSIUM CHLORIDE 10 MEQ TABLET.ER. PO SCH (08:00)
[2020-01-25 08:17] LABS: ALBUMIN 2.6 g/dL (3.4-5.0); ALBUMIN/GLOBULIN RATIO 0.6 (1.0-1.7); CALCIUM 8.3 mg/dL (8.5-10.1); CREATININE 1.2 mg/dL (0.7-1.3); POTASSIUM 3.5 mmol/L (3.5-5.1); TOTAL BILIRUBIN 2.1 mg/dL (0.2-1.0); TOTAL PROTEIN 6.9 g/dL (6.4-8.2)
[2020-01-25] MEDS ORDERED: ANTI-COAG MONITOR BY PHARMACY. MC PRN (08:30)
[2020-01-25] MEDS ORDERED: FUROSEMIDE 40 MG TABLET. PO SCH (09:00)
[2020-01-25] MEDS: TAMSULOSIN 0.4 MG CAP.ER.24H. PO SCH ×2 (09:41→20:45)
[2020-01-25] MEDS: APIXABAN 5 MG TABLET. PO SCH (09:41)
[2020-01-25] MEDS: PANTOPRAZOLE 40 MG TABLET.DR. PO SCH (09:42)
[2020-01-25] MEDS: METOPROLOL TART IMMED RELEASE 25 MG TABLET. PO SCH ×2 (09:42→20:45)
[2020-01-25] MEDS: HYDROcodone/APAP 7.5/325MG 1 TAB TABLET PO PRN ×2 (09:42→23:24)
[2020-01-25] MEDS: POTASSIUM CHLORIDE 10 MEQ TABLET.ER. PO SCH (09:45)
[2020-01-25] MEDS ORDERED: ACETAMINOPHEN 325 MG TABLET. PO PRN (09:45)
[2020-01-25 11:00] VITALS: BP 120/67
--- NOTE | 2020-01-25 11:00 | PDOC ---
Provider Note Provider Note H&P dictated #[id number] Justicifation of Admission Dx: Justifications for Admission: Justification of Admission Dx: Yes VENANCIO CHU MD Jan 25, 2020 11:00
--- NOTE | 2020-01-25 11:47 | HP ---
ADMIT DATE: 01/25/2020 HISTORY OF PRESENT ILLNESS: This 89-year-old male who lives at home with his . He is becoming more confused for the last week or so. He does have some cognitive deficits, but he is quite confused. He also fell twice in last 1 week as per the family. He fell 3 days ago on and hurt his right elbow and knee and since then, his right knee is much more swollen and painful and he is not able to ambulate. His right elbow is also swollen and painful. It is not clear if he had had trauma, but family does not think so. He has been on Eliquis. He denies any bleeding. Because of his change in mental status and falls and swelling of the right knee with inability to ambulate, the patient was brought to the Emergency Room. In the Emergency Room, the patient had CT scan of head that was negative for any acute bleeds. He had a chest x-ray that is negative for any acute changes. He had multiple x-rays including those of right elbow, right forearm, cervical spine, CT spine of head, lumbar spine x-rays, thoracic spine x-rays, hip and pelvis x-rays and knee x-rays, especially of the right knee and these do not show any fracture. Some of them do show degenerative changes. Lumbar spine does show some loss of disk height at least at 2 levels. Urinalysis showed positive nitrite, large leukocyte esterase, WBC too numerous to count, urine bacteria 0. Sodium was 140, potassium 3.5, BUN 24, creatinine 1.4, bilirubin was 2.5, albumin 3. WBC count 14.5, hemoglobin 16.6, platelet count 138,000. Today platelet count is 129,000. Because of his complicated UTI with recent elevated PSA of 21, change in mental status, frequent falls with severe swelling of the right knee and inability to ambulate, the patient has been admitted for further evaluation and management. REVIEW OF SYSTEMS: The patient is forgetful, does admit to lot of pain, but he is very forgetful. He is also hard of hearing, unable to do full systems review. He has had some difficulty voiding, but no burning or hematuria. Has some joint pains. Denies any dyspnea, but has been having some chronic cough and has been using breathing treatment at home. He denies any fever, chills or sore throat. Other systems reviewed and are negative. PAST MEDICAL HISTORY: The patient has history of atrial fibrillation. He had an echocardiogram done last week, hypertension, hyperlipidemia, osteoarthritis, carcinoma of colon. His last CEA level was 5.4 last week. He previously had pneumothorax. He has history of colon polyps, previous history of diabetes, gastritis, and abnormal LFTs with elevated bilirubin. He has a history of benign prostatic hypertrophy and hypertension as noted earlier. PAST SURGICAL HISTORY: Includes laparoscopic right colon resection in 04/2015. He has had left total knee arthroplasty, appendectomy, and pilonidal cystectomy. FAMILY HISTORY: Positive for hypertension. SOCIAL HISTORY: He lives at home with his . No history of alcoholism, drug abuse or smoking. Very minimal history of smoking remotely about 65 years ago. ALLERGIES: None known any. MEDICATIONS: Reviewed and reconciled. PHYSICAL EXAMINATION: GENERAL: The patient is an elderly male who is alert, forgetful and not in acute distress. VITAL SIGNS: Temperature max 100.5, pulse 94 per minute, respirations 16 per minute, blood pressure 145/74 mmHg. The patient is alert, forgetful, not in acute distress. EYES: Pupils reacting to light. Conjunctivae pale. Sclerae muddy. HENT: Minimal congestion of throat. NECK: JVP normal. No thyromegaly. Trachea midline. LUNGS: Decreased breath sounds at bases. CARDIOVASCULAR: S1, S2 irregular. ABDOMEN: Soft, nontender, no guarding, no rigidity. Bowel sounds present. EXTREMITIES: No edema of the lower extremities; however, he has 3-4+ swelling of the right knee. No bruising of the right knee noted and he also has some swelling of the right elbow posteriorly. Decreased range of motion of both right knee and elbow, especially the right knee. SKIN: The patient has some bruising. CENTRAL NERVOUS SYSTEM: Alert, but forgetful and has generalized weakness, unable to move all the extremities due to pain. He is also hard of hearing. LABORATORY FINDINGS: As noted earlier. IMPRESSION: 1. Urinary tract infection. 2. Frequent falls. 3. Possible occult fracture of the right knee with large effusion, may be traumatic because the patient is also on Eliquis, although no discoloration of the skin noted. 4. Acute metabolic encephalopathy. 5. Right elbow swelling and history of trauma. 6. Hypertension. 7. History of diabetes. 8. Benign prostatic hypertrophy. 9. Hyperlipidemia. 10. Recent elevated PSA of 21. 11. Osteoarthritis. 12. Atrial fibrillation, chronic. 13. History of gastritis. 14. Abnormal liver function tests. 15. Physical deconditioning. PLAN: Hold Eliquis for now because of the possibility of bleeding in the joint. Consult PT, OT, ST. Start breathing treatment. Hold Lasix for now. Recheck labs in a.m. Consult Dr. Wood for Infectious Disease evaluation and management, Dr. Pitt for Rehab evaluation and management, and Dr. Thomas for Orthopedic Surgery evaluation and management. The patient has been started on IV Rocephin. The patient was given some fluids yesterday, but also has a history of fluid retention, so we will go cautiously but hold Lasix for now. Condition and treatment options extensively discussed with the patient and the family. Most likely, he may need to go to a long-term unit after he gets better. Continue to monitor his mental status. For details, please refer to the orders. VENANCIO CHU MD DR: FARHEEN/bill JOB#: [id number] / [id number]
--- NOTE | 2020-01-25 12:32 | PDOC ---
Infectious Disease Note Vital Sign Vital Signs Vital Signs Date Time Temp Pulse Resp B/P (MAP) Pulse Ox O2 Delivery O2 Flow Rate FiO2 01/25/20 09:42 94 Room Air 01/25/20 09:42 112 117/65 01/25/20 07:00 98.2 16 98.2 Labs Lab Laboratory Tests Test 01/24/20 12:55 01/24/20 13:30 01/24/20 14:55 01/25/20 07:00 White Blood Count 14.5 x10^3/uL (4.0-11.0) 14.0 x10^3/uL (4.0-11.0) Red Blood Count 4.78 x10^6/uL (4.30-5.70) 4.41 x10^6/uL (4.30-5.70) Hemoglobin 16.6 g/dL (13.0-17.5) 15.4 g/dL (13.0-17.5) Hematocrit 48.5 % (39.0-53.0) 44.4 % (39.0-53.0) Mean Corpuscular Volume 101 fL (79-100) 101 fL (79-100) Mean Corpuscular Hemoglobin 35 pg (25-35) 35 pg (25-35) Mean Corpuscular Hemoglobin Concent 34 g/dL (31-37) 35 g/dL (31-37) Red Cell Distribution Width 12.9 % (11.5-14.5) 13.2 % (11.5-14.5) Platelet Count 138 x10^3/uL (140-400) 129 x10^3/uL (140-400) Neutrophils (%) (Auto) 74 % (31-73) 78 % (31-73) Lymphocytes (%) (Auto) 9 % (24-48) 9 % (24-48) Monocytes (%) (Auto) 17 % (0-9) 13 % (0-9) Eosinophils (%) (Auto) 0 % (0-3) 0 % (0-3) Basophils (%) (Auto) 0 % (0-3) 0 % (0-3) Neutrophils # (Auto) 10.7 x10^3/uL (1.8-7.7) 11.0 x10^3/uL (1.8-7.7) Lymphocytes # (Auto) 1.3 x10^3/uL (1.0-4.8) 1.2 x10^3/uL (1.0-4.8) Monocytes # (Auto) 2.5 x10^3/uL (0.0-1.1) 1.8 x10^3/uL (0.0-1.1) Eosinophils # (Auto) 0.0 x10^3/uL (0.0-0.7) 0.0 x10^3/uL (0.0-0.7) Basophils # (Auto) 0.0 x10^3/uL (0.0-0.2) 0.0 x10^3/uL (0.0-0.2) Segmented Neutrophils % 75 % (35-66) Band Neutrophils % 4 % (0-9) Lymphocytes % 9 % (24-48) Monocytes % 12 % (0-10) Platelet Estimate Adequate (ADEQUATE) Sodium Level 140 mmol/L (136-145) 138 mmol/L (136-145) Potassium Level 3.5 mmol/L (3.5-5.1) 3.5 mmol/L (3.5-5.1) Chloride Level 103 mmol/L (98-107) 103 mmol/L (98-107) Carbon Dioxide Level 29 mmol/L (21-32) 25 mmol/L (21-32) Anion Gap 8 (6-14) 10 (6-14) Blood Urea Nitrogen 24 mg/dL (8-26) 23 mg/dL (8-26) Creatinine 1.4 mg/dL (0.7-1.3) 1.2 mg/dL (0.7-1.3) Estimated GFR (Cockcroft-Gault) 47.7 57.0 BUN/Creatinine Ratio 17 (6-20) 19 (6-20) Glucose Level 143 mg/dL (70-99) 141 mg/dL (70-99) Calcium Level 8.6 mg/dL (8.5-10.1) 8.3 mg/dL (8.5-10.1) Total Bilirubin 2.5 mg/dL (0.2-1.0) 2.1 mg/dL (0.2-1.0) Aspartate Amino Transf (AST/SGOT) 17 U/L (15-37) 18 U/L (15-37) Alanine Aminotransferase (ALT/SGPT) 32 U/L (16-63) 24 U/L (16-63) Alkaline Phosphatase 71 U/L (46-116) 63 U/L (46-116) Troponin I Quantitative < 0.017 ng/mL (0.000-0.055) Total Protein 7.5 g/dL (6.4-8.2) 6.9 g/dL (6.4-8.2) Albumin 3.0 g/dL (3.4-5.0) 2.6 g/dL (3.4-5.0) Albumin/Globulin Ratio 0.7 (1.0-1.7) 0.6 (1.0-1.7) Urine Collection Type Unknown Urine Color Yessica Urine Clarity Cloudy Urine pH 6.0 (<5.0-8.0) Urine Specific Stowell 1.020 (1.000-1.030) Urine Protein 30 mg/dL (NEG-TRACE) Urine Glucose (UA) Negative mg/dL (NEG) Urine Ketones (Stick) Negative mg/dL (NEG) Urine Blood Small (NEG) Urine Nitrite Positive (NEG) Urine Bilirubin Negative (NEG) Urine Urobilinogen Dipstick 1.0 mg/dL (0.2 mg/dL) Urine Leukocyte Esterase Large (NEG) Urine RBC 1-2 /HPF (0-2) Urine WBC Tntc /HPF (0-4) Urine Bacteria 0 /HPF (0-FEW) Urine Mucus Mod /LPF Lactic Acid Level 1.6 mmol/L (0.4-2.0) Objective Assessment Pyruia Leukocytosis Right knee effusion s/p fall BPH Dementia A-fib Hypertension Plan Plan of Care Rocephin f/u cultures Monitor labs/temp Maintain aspiration precautions d/w nursing D/w family at bedside Thank you [id number] Attending Co-Sign The patient was seen and interviewed as well as examined at the bedside. The chart was reviewed. The case was discussed. Agree with the plan of care. MARIANO MONTERO APRN Jan 25, 2020 12:32 NATALIA CURIEL MD Jan 25, 2020 12:33
[2020-01-25] MEDS: ALBUTEROL SULFATE 2.5 MG/3 ML NEBU. NEB SCH ×3 (12:34→20:31)
--- NOTE | 2020-01-25 13:21 | CONS ---
DATE OF CONSULTATION: 01/25/2020 REFERRING PHYSICIAN: Dr. Garcia. REASON FOR CONSULTATION: Urinary tract infection. HISTORY OF PRESENT ILLNESS: This patient is an 89-year-old male who presented to the ER with generalized weakness. He had fallen a few times at home and seemed a little bit more confused than usual. Urinalysis was positive for wbc's too numerous to count, leukocyte esterase, nitrite. IV started on ceftriaxone. He wears the pants for urinary incontinence and takes Flomax. He denies fevers, chills or body aches. He lives at home with his . He has not been hospitalized since 2014. He has not been on any antibiotics recently. PAST MEDICAL HISTORY: Cataracts, glaucoma, dementia, coronary artery disease, peripheral vascular disease, hyperlipidemia, atrial fibrillation, hypertension, history of diverticulitis, colorectal cancer, colonic polyps, hemorrhoids, obesity, GERD, chronic kidney disease, benign prostatic hyperplasia, urinary incontinence, osteoarthritis, back pain, anemia, skin cancer. PAST SURGICAL HISTORY: Cataract extraction, cardiac catheterization, colon resection, appendectomy, left knee replacement, pilonidal cystectomy. SOCIAL HISTORY: The patient lives at home. FAMILY HISTORY: Hypertension, cardiovascular disease. ALLERGIES: No known drug allergies. CURRENT MEDICATIONS: Reviewed on the MAR and include ceftriaxone. PHYSICAL EXAMINATION: VITAL SIGNS: Temperature 98.2, blood pressure 117/65, heart rate 112, respiratory rate 16, pulse oximetry 94% on room air. BMI 32. GENERAL: The patient is sitting in the chair, alert and eating. HEENT: Normal conjunctivae. Oropharynx pink and moist. Hard of hearing. NECK: Supple. LUNGS: Clear to auscultation. No accessory muscle use. HEART: S1, S2. ABDOMEN: Soft, nontender with bowel sounds present. EXTREMITIES: Venous stasis changes. The right knee is tender with effusion. Right elbow is tender, limited range of motion. SKIN: Warm to touch. No signs of rash. NEUROLOGIC: Alert and answering simple questions appropriately, but forgetful. LABORATORY DATA: Today's WBC 14.0 from 14.5 on admission, hemoglobin 15.4, platelets 129,000. Electrolytes are unremarkable. Creatinine 1.2 from 1.4, BUN 23, glucose 141, lactic acid 1.6, total bilirubin 2.1, AST 18, ALT 24, albumin 2.6. Urinalysis per HPI. Urine and blood cultures pending. Chest x-ray showed no acute disease. Right elbow showed advanced degenerative changes. No suspicious fracture or bone destruction. Right forearm x-ray, no acute fracture or dislocation, soft tissue gas or radiopaque foreign body. Head, cervical CT showed advanced degenerative changes of the cervical spine, no fracture or suspicious malalignment, no intracranial hemorrhage. Lumbar and thoracic spine x-rays, hip and pelvis x-ray reviewed as well as right knee x-ray. IMPRESSION: 1. Pyuria. 2. Leukocytosis. 3. Right knee effusion. 4. Status post fall. 5. Benign prostate hypertrophy. 6. Dementia. 7. Atrial fibrillation. 8. Hypertension. PLAN: 1. Continue the Rocephin. 2. Follow up on cultures. 3. Monitor labs and temperature. 4. Maintain aspiration precautions. 5. Discussed with nursing and family at bedside. Thank you, Dr. Garcia, for asking us to participate in this patient's care. Should you have further questions or concerns, please call. The patient is seen and examined and plan of care implemented by Dr. Raul Curiel. RAUL CURIEL MD DR: ESPERANZA/bill JOB#: [id number] / [id number]
[2020-01-25] MEDS: cefTRIAXone IV Push 1 GM VIAL. IVP SCH (13:55)
[2020-01-25] MEDS ORDERED: ONDANSETRON PF 4 MG/2 ML VIAL. IV PRN (14:00)
[2020-01-25 15:00] VITALS: BP 102/64
[2020-01-25] MEDS ORDERED: DAPTOmycin (GENERIC) IVPB 500 MG in IV NORMAL SALINE 50ML 50 ML IV ONE (15:15)
[2020-01-25] MEDS ORDERED: LIDOCAINE 1% Multi-Dose 20 ML VIAL. INJ ONE ×2 (16:45)
[2020-01-25] MEDS ORDERED: methylPREDNISolone ACETATE 80 MG/ML VIAL. INJ ONE (16:45)
[2020-01-25] MEDS ORDERED: methylPREDNISolone ACETATE 80 MG/ML VIAL. IM ONE (16:45)
[2020-01-25] MEDS ORDERED: BUPIVACAINE MPF 0.25% 10 ML VIAL. IJ ONE ×2 (16:45)
--- NOTE | 2020-01-25 16:49 | PDOC2 ---
CONSULT Date of Consult Date of Consult DATE: 01/25/20 TIME: 16:40 Reason for Consult Reason for Consult: Right knee pain and swelling after a fall Referring Physician Referring Physician: Jose Identification/Chief Complaint Chief Complaint right knee pain and swelling after a fall Source Source: Caregiver, Chart review, Patient History of Present Illness Reason for Visit: Mr. Coleman is an 89 year old, new patient with new onset right knee pain after a recent fall. He also fell twice in last week as per the family. He lives at home with his but they are now requiring full-time 24-hour a day care because of their difficulty caring for themselves. He is distantly related to me,(he is my zsiehq-sz-lev's uncle) and I have cared for his family members, although I do not think he has been my patient previously. He fell 3 days ago on and hurt his right elbow and knee and since then, his right knee is much more swollen and painful and he is not able to ambulate. His right elbow is also swollen and painful. It is not clear if he had had trauma, but family does not think so. He has been on Eliquis. He denies any bleeding. Because of his change in mental status and falls and swelling of the right knee with inability to ambulate, the patient was brought to the Emergency Room. In the Emergency Room, the patient had CT scan of head that was negative for any acute bleeds. He had a chest x-ray that is negative for any acute changes. He had multiple x-rays including those of right elbow, right forearm, cervical spine, CT spine of head, lumbar spine x-rays, thoracic spine x-rays, hip and pelvis x- rays and knee x-rays, especially of the right knee and these do not show any fracture. Some of them do show degenerative changes. Lumbar spine does show some loss of disk height at least at 2 levels. Past Medical History Past Medical History atrial fibrillation. He had an echocardiogram done last week, hypertension, hyperlipidemia, osteoarthritis, carcinoma of colon. His last CEA level was 5.4 last week. He previously had pneumothorax. He has history of colon polyps, previous history of diabetes, gastritis, and abnormal LFTs with elevated bilirubin. He has a history of benign prostatic hypertrophy and hypertension as noted earlier. Cardiovascular: AFIB, HTN, Hyperlipidemia Musculoskeletal: Osteoarthritis Past Surgical History Past Surgical History Includes laparoscopic right colon resection in 04/2015. He has had left total knee arthroplasty, appendectomy, and pilonidal cystectomy. Past Surgical History: Appendectomy, Total knee replacement, Other Family History Family History: Hypertension Social History No ALCOHOL: none Drugs: None Lives: with Family Current Problem List Problem List Problems Medical Problems: (1) AMS (altered mental status) Status: Acute (2) UTI (urinary tract infection) Status: Acute Current Medications Current Medications Current Medications Ceftriaxone Sodium (Rocephin) 1 gm 1X ONCE IVP Last administered on 01/24/20at 14:30; Start 01/24/20 at 14:15; Stop 01/24/20 at 14:16; Status DC Sodium Chloride 1,000 ml @ 1,000 mls/hr 1X ONCE IV Last administered on 01/24/20at 14:45; Start 01/24/20 at 14:45; Stop 01/24/20 at 15:44; Status DC Ondansetron HCl (Zofran) 4 mg PRN Q8HRS PRN IV NAUSEA/VOMITING; Start 01/25/20 at 14:00; Stop 01/25/20 at 14:01; Status DC Ceftriaxone Sodium (Rocephin) 1 gm Q24H IVP Last administered on 01/25/20at 13:55; Start 01/25/20 at 14:00 Apixaban (Eliquis) 5 mg BID PO Last administered on 01/25/20at 09:41; Start 01/24/20 at 21:00; Stop 01/25/20 at 10:46; Status DC Atorvastatin Calcium (Lipitor) 10 mg QHS PO Last administered on 01/24/20at 21:12; Start 01/24/20 at 21:00 Furosemide (Lasix) 40 mg DAILY PO Last administered on 01/25/20at 09:42; Start 01/25/20 at 09:00; Stop 01/25/20 at 10:46; Status DC Metoprolol Tartrate (Lopressor) 25 mg BID PO Last administered on 01/25/20at 09:42; Start 01/24/20 at 21:00 Tamsulosin HCl (Flomax) 0.4 mg BID PO Last administered on 01/25/20at 09:41; Start 01/24/20 at 21:00 Pantoprazole Sodium (Protonix) 40 mg DAILYAC PO Last administered on 01/25/20at 09:42; Start 01/25/20 at 07:30 Potassium Chloride (Klor-Con) 10 meq DAILYWBKFT PO ; Start 01/25/20 at 08:00; Stop 01/25/20 at 09:41; Status DC Acetaminophen/ Hydrocodone Bitart (Lortab 7.5/325) 1 tab PRN Q4HRS PRN PO PAIN Last administered on 01/25/20at 09:42; Start 01/24/20 at 20:15 Info (Anti-Coagulation Monitoring By Pharmacy) 1 each PRN DAILY PRN MC SEE COMMENTS Last administered on 01/25/20at 10:17; Start 01/25/20 at 08:30 Potassium Chloride (Klor-Con) 20 meq DAILYWBKFT PO ; Start 01/25/20 at 09:45 Acetaminophen (Tylenol) 650 mg PRN Q6HRS PRN PO MILD PAIN / TEMP > 100.3'F; Start 01/25/20 at 09:45 Albuterol Sulfate (Ventolin Neb Soln) 2.5 mg RTQID NEB Last administered on 01/25/20at 12:34; Start 01/25/20 at 12:00; Stop 02/01/20 at 11:59 Lactobacillus Rhamnosus (Culturelle) 1 cap BID PO ; Start 01/25/20 at 21:00 Daptomycin 500 mg/ Sodium Chloride 50 ml @ 100 mls/hr 1X ONCE IV Last administered on 01/25/20at 16:08; Start 01/25/20 at 15:15; Stop 01/25/20 at 15 :44; Status DC Active Scripts Active Reported Klor-Con 10 (Potassium Chloride) 10 Meq Tablet.er 10 Meq PO DAILY Lasix (Furosemide) 40 Mg Tablet 1 Tab PO DAILY 30 Days Metoprolol Tartrate 25 Mg Tablet 1 Tab PO BID Eliquis (Apixaban) 5 Mg Tablet 5 Mg PO BID Flomax (Tamsulosin Hcl) 0.4 Mg Cap.er.24h 1 Cap PO BID Omeprazole 20 Mg Capsule. 1 Cap PO DAILY Atorvastatin Calcium 10 Mg Tablet 10 Mg PO DAILY Allergies Allergies: Coded Allergies: No Known Drug Allergies (Unverified , 04/30/15) ROS Review of System The patient is forgetful, does admit to lot of pain, but he is very forgetful. He is also hard of hearing, unable to do full systems review. He has had some difficulty voiding, but no burning or hematuria. Has some joint pains. Denies any dyspnea, but has been having some chronic cough and has been using breathing treatment at home. He denies any fever, chills or sore throat. Other systems reviewed and are negative. Physical Exam General: Alert, Cooperative, Other (poor memory and poor hearing) HEENT: Atraumatic Lungs: Normal air movement Heart: Regular rate Abdomen: Soft Extremities: Normal pulses, Other (The right elbow has multiple areas of bruising, slight swelling consistent with osteoarthritis, no malalignment, no palpable bursal fluid or bursal swelling. Abrasions on the right forearm are covered with dressings. Slightly limited range of motion of the elbow is consistent with osteoarthritis.The RIGHT knee varus alignment. No masses. There is a tense effusion without significant warmth or evidence of infection. Tenderness on the joint lines. Range of motion is 15-95 degrees. There is crepitus with range of motion, and pain at the extremes of motion. The knee is stable to varus and valgus stress without subluxation or laxity. Muscle strength is slightly weak for the quadriceps 4+/5 which may be due to pain or avoidance, and does not seem neurogenic, and the muscle tone and bulk is slightly decreased. Skin shows multiple bruising areas from Eliquis. Light touch sensation is intact. Slight lower extremity edema bilateral. Dorsalis pedis pulse is intact and capillary refill is normal.) Skin: Other (bruising multiple small areas upper and lower extremities consistent with anticoagulation) Neuro: Normal speech, Sensation intact Psych/Mental Status: Mood NL MUSCULOSKELETAL: Abnormal exam of right (Elbow and knee as above) Vitals VITALS Vital Signs Date Time Temp Pulse Resp B/P (MAP) Pulse Ox O2 Delivery O2 Flow Rate FiO2 01/25/20 15:00 98.3 106 18 102/64 (77) 96 Room Air 98.3 Labs Labs Laboratory Tests Test 01/24/20 12:55 01/24/20 13:30 01/24/20 14:55 01/25/20 07:00 White Blood Count 14.5 x10^3/uL (4.0-11.0) 14.0 x10^3/uL (4.0-11.0) Red Blood Count 4.78 x10^6/uL (4.30-5.70) 4.41 x10^6/uL (4.30-5.70) Hemoglobin 16.6 g/dL (13.0-17.5) 15.4 g/dL (13.0-17.5) Hematocrit 48.5 % (39.0-53.0) 44.4 % (39.0-53.0) Mean Corpuscular Volume 101 fL (79-100) 101 fL (79-100) Mean Corpuscular Hemoglobin 35 pg (25-35) 35 pg (25-35) Mean Corpuscular Hemoglobin Concent 34 g/dL (31-37) 35 g/dL (31-37) Red Cell Distribution Width 12.9 % (11.5-14.5) 13.2 % (11.5-14.5) Platelet Count 138 x10^3/uL (140-400) 129 x10^3/uL (140-400) Neutrophils (%) (Auto) 74 % (31-73) 78 % (31-73) Lymphocytes (%) (Auto) 9 % (24-48) 9 % (24-48) Monocytes (%) (Auto) 17 % (0-9) 13 % (0-9) Eosinophils (%) (Auto) 0 % (0-3) 0 % (0-3) Basophils (%) (Auto) 0 % (0-3) 0 % (0-3) Neutrophils # (Auto) 10.7 x10^3/uL (1.8-7.7) 11.0 x10^3/uL (1.8-7.7) Lymphocytes # (Auto) 1.3 x10^3/uL (1.0-4.8) 1.2 x10^3/uL (1.0-4.8) Monocytes # (Auto) 2.5 x10^3/uL (0.0-1.1) 1.8 x10^3/uL (0.0-1.1) Eosinophils # (Auto) 0.0 x10^3/uL (0.0-0.7) 0.0 x10^3/uL (0.0-0.7) Basophils # (Auto) 0.0 x10^3/uL (0.0-0.2) 0.0 x10^3/uL (0.0-0.2) Segmented Neutrophils % 75 % (35-66) Band Neutrophils % 4 % (0-9) Lymphocytes % 9 % (24-48) Monocytes % 12 % (0-10) Platelet Estimate Adequate (ADEQUATE) Sodium Level 140 mmol/L (136-145) 138 mmol/L (136-145) Potassium Level 3.5 mmol/L (3.5-5.1) 3.5 mmol/L (3.5-5.1) Chloride Level 103 mmol/L (98-107) 103 mmol/L (98-107) Carbon Dioxide Level 29 mmol/L (21-32) 25 mmol/L (21-32) Anion Gap 8 (6-14) 10 (6-14) Blood Urea Nitrogen 24 mg/dL (8-26) 23 mg/dL (8-26) Creatinine 1.4 mg/dL (0.7-1.3) 1.2 mg/dL (0.7-1.3) Estimated GFR (Cockcroft-Gault) 47.7 57.0 BUN/Creatinine Ratio 17 (6-20) 19 (6-20) Glucose Level 143 mg/dL (70-99) 141 mg/dL (70-99) Calcium Level 8.6 mg/dL (8.5-10.1) 8.3 mg/dL (8.5-10.1) Total Bilirubin 2.5 mg/dL (0.2-1.0) 2.1 mg/dL (0.2-1.0) Aspartate Amino Transf (AST/SGOT) 17 U/L (15-37) 18 U/L (15-37) Alanine Aminotransferase (ALT/SGPT) 32 U/L (16-63) 24 U/L (16-63) Alkaline Phosphatase 71 U/L (46-116) 63 U/L (46-116) Troponin I Quantitative < 0.017 ng/mL (0.000-0.055) Total Protein 7.5 g/dL (6.4-8.2) 6.9 g/dL (6.4-8.2) Albumin 3.0 g/dL (3.4-5.0) 2.6 g/dL (3.4-5.0) Albumin/Globulin Ratio 0.7 (1.0-1.7) 0.6 (1.0-1.7) Urine Collection Type Unknown Urine Color Yessica Urine Clarity Cloudy Urine pH 6.0 (<5.0-8.0) Urine Specific [place] 1.020 (1.000-1.030) Urine Protein 30 mg/dL (NEG-TRACE) Urine Glucose (UA) Negative mg/dL (NEG) Urine Ketones (Stick) Negative mg/dL (NEG) Urine Blood Small (NEG) Urine Nitrite Positive (NEG) Urine Bilirubin Negative (NEG) Urine Urobilinogen Dipstick 1.0 mg/dL (0.2 mg/dL) Urine Leukocyte Esterase Large (NEG) Urine RBC 1-2 /HPF (0-2) Urine WBC Tntc /HPF (0-4) Urine Bacteria 0 /HPF (0-FEW) Urine Mucus Mod /LPF Lactic Acid Level 1.6 mmol/L (0.4-2.0) Laboratory Tests Test 01/25/20 07:00 White Blood Count 14.0 x10^3/uL (4.0-11.0) Red Blood Count 4.41 x10^6/uL (4.30-5.70) Hemoglobin 15.4 g/dL (13.0-17.5) Hematocrit 44.4 % (39.0-53.0) Mean Corpuscular Volume 101 fL (79-100) Mean Corpuscular Hemoglobin 35 pg (25-35) Mean Corpuscular Hemoglobin Concent 35 g/dL (31-37) Red Cell Distribution Width 13.2 % (11.5-14.5) Platelet Count 129 x10^3/uL (140-400) Neutrophils (%) (Auto) 78 % (31-73) Lymphocytes (%) (Auto) 9 % (24-48) Monocytes (%) (Auto) 13 % (0-9) Eosinophils (%) (Auto) 0 % (0-3) Basophils (%) (Auto) 0 % (0-3) Neutrophils # (Auto) 11.0 x10^3/uL (1.8-7.7) Lymphocytes # (Auto) 1.2 x10^3/uL (1.0-4.8) Monocytes # (Auto) 1.8 x10^3/uL (0.0-1.1) Eosinophils # (Auto) 0.0 x10^3/uL (0.0-0.7) Basophils # (Auto) 0.0 x10^3/uL (0.0-0.2) Sodium Level 138 mmol/L (136-145) Potassium Level 3.5 mmol/L (3.5-5.1) Chloride Level 103 mmol/L (98-107) Carbon Dioxide Level 25 mmol/L (21-32) Anion Gap 10 (6-14) Blood Urea Nitrogen 23 mg/dL (8-26) Creatinine 1.2 mg/dL (0.7-1.3) Estimated GFR (Cockcroft-Gault) 57.0 BUN/Creatinine Ratio 19 (6-20) Glucose Level 141 mg/dL (70-99) Calcium Level 8.3 mg/dL (8.5-10.1) Total Bilirubin 2.1 mg/dL (0.2-1.0) Aspartate Amino Transf (AST/SGOT) 18 U/L (15-37) Alanine Aminotransferase (ALT/SGPT) 24 U/L (16-63) Alkaline Phosphatase 63 U/L (46-116) Total Protein 6.9 g/dL (6.4-8.2) Albumin 2.6 g/dL (3.4-5.0) Albumin/Globulin Ratio 0.6 (1.0-1.7) Images Images Right knee x-rays report reviewed, images independently reviewed. Severe right knee osteoarthritis with narrowing, sclerosis, and osteophyte formation, Ke llgren-Chris grade 3 osteoarthritis changes. Other x-rays on 01/23, reports reviewed and images independently reviewed. Chest x-ray shows severe right shoulder glenohumeral joint osteoarthritis. Hip and pelvis shows mild degenerative changes of both hips, no obvious or acute fracture. Degenerative changes in the lumbar spine. Thoracic spine shows degenerative changes, no obv ious compression fracture. Lumbar spine shows degenerative spondylolisthesis and multiple level degenerative changes. Elbow and forearm films show no acute fractures. Osteoarthritis degenerative changes at the elbow joint. No obvious bursitis radiographically. [facility] [address] [place] [address] IMAGING REPORT Signed PATIENT: MARY LOU COLEMAN ACCOUNT: [id number] : 1930 LOCATION: ER AGE: 89 SEX: M EXAM STATUS: REG ER ORD. PHYSICIAN: JAQUELIN ALEXANDER APRN REASON: FALL, RT KNEE PAIN, SWELLING PROCEDURE: KNEE RIGHT 3V KNEE RIGHT 3V 01/24/2020 1:14 PM INDICATION: Fall, right knee pain COMPARISON: None available. TECHNIQUE: 3 views of the right knee are provided. FINDINGS/ IMPRESSION: 1. No acute fracture or dislocation. Large knee joint effusion. 2. 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 Mild lateral femorotibial joint space narrowing and marginal osteophytosis. Severe patellofemoral joint space narrowing with marginal osteophytosis. Patellar is poorly visualized, although favored to be intact. 3. Vascular calcifications are present. Regional soft tissue swelling is noted. Tibia and fibula appear intact. Electronically signed by: Kobe Aguilera MD (01/24/2020 12:52 PM) [facility] DICTATED and SIGNED BY: KOBE AGUILERA MD DATE: 01/24/20 1252 [facility] [address] [place] [address] IMAGING REPORT Signed PATIENT: MARY LOU COLEAMN ACCOUNT: [id number] : 1930 LOCATION: ER AGE: 89 SEX: M EXAM STATUS: REG ER ORD. PHYSICIAN: JAQUELIN ALEXANDER APRN REASON: ams PROCEDURE: PORTABLE CHEST 1V Examination: PORTABLE CHEST 1V History: Reason: ams / Comparison/Correlation: None Findings: Semiupright AP frontal view the chest was obtained. Motion at the upper thoracic level may limit assessment. Heart size is borderline and this may be technique related. Pulmonary vasculature is within normal limits. No pneumothorax, infiltrate, or significant pleural effusion. Costophrenic angles are not fully included. Bony structures are intact. Severe degenerative change of the right glenohumeral joint is present. Impression: No acute disease. Electronically signed by: Zafar Antonio MD (01/24/2020 12:45 PM) [id number] DICTATED and SIGNED BY: ZAFAR ANTONIO MD DATE: 01/24/20 [facility] [id number] IMAGING REPORT Signed PATIENT: MARY LOU COLEMAN ACCOUNT: [id number] : 1930 LOCATION: ER AGE: 89 SEX: M EXAM STATUS: REG ER ORD. PHYSICIAN: JAQUELIN ALEXANDER APRN REASON: fall, ZEHRA HIP PAIN PROCEDURE: HIP BILATERAL WITH PELVIS Examination: HIP BILATERAL WITH PELVIS History: Reason: fall, ZEHRA HIP PAIN / Spl. Instructions: / History: Comparison/Correlation: No Findings: Frontal view of the pelvis was obtained. Frontal and frog-leg lateral views of the right hip were obtained. Frontal and lateral views of the left hip was provided. Mild cingulate joint degenerative changes present. Symmetric. No displaced fracture or bone destruction. Osteopenia is present. Subtle sclerotic involvement of the femoral heads bilaterally is evident raising question of mild avascular necrosis. Femoral head contours are unremarkable Impression: No acute processes. Consider further imaging if occult fracture is a persistent concern. Electronically signed by: Zafar Antonio MD (01/24/2020 12:48 PM) [id number] DICTATED and SIGNED BY: ZAFAR ANTONIO MD DATE: 01/24/[address] [address] IMAGING REPORT Signed PATIENT: MARY LOU COLEMAN ACCOUNT: [id number] : 1930 LOCATION: ER AGE: 89 SEX: M EXAM STATUS: REG ER ORD. PHYSICIAN: JAQUELIN ALEXANDER APRN REASON: fall, BACK PAIN PROCEDURE: THORACIC SPINE 3V LUMBAR SPINE 2-3V, THORACIC SPINE 3V 01/24/2020 11:22 AM INDICATION: Fall, back pain COMPARISON: None available. TECHNIQUE: 3 views of the thoracic spine 3 views lumbar spine are provided. FINDINGS/ IMPRESSION: 1. Minimal dextro convex curvature of the thoracic spine centered at T4-T5. Mild disc height loss at the upper thoracic spine. Moderate anterior and lateral marginal osteophytosis the thoracic spine. No acute fracture or compression deformity is visualized. 2. There are 5 nonrib-bearing lumbar type vertebral bodies. Minimal dextro convex curvature of the lumbar spine centered at L3-L4. There is minimal retrolisthesis of L2 on L3 and L3 on L4. Grade 1 anterolisthesis of L4 on L5. Moderate disc height loss is identified at L2-L3 and L4-L5. Minimal inferior endplate concavity at L2 without significant height loss (age indeterminate). If there is clinical concern for acute compression deformity, further evaluation with MRI may be of benefit. Moderate intramarginal osteophytosis at L3-L4. Moderate to advanced facet arthropathy is noted. Versus portions of the sacrum appear intact. Electronically signed by: Kobe Aguilera MD (01/24/2020 12:51 PM) [facility] DICTATED and SIGNED BY: KOBE AGUILERA MD DATE: 01/24/[address] [place] [address] [address] [facility] [place] [address] IMAGING REPORT Signed PATIENT: MARY LOU COLEMAN ACCOUNT: [id number] : 1930 LOCATION: ER AGE: 89 SEX: M EXAM STATUS: REG ER ORD. PHYSICIAN: JAQUELIN ALEXANDER APRN REASON: fall, BACK PAIN PROCEDURE: LUMBAR SPINE 2-3V LUMBAR SPINE 2-3V, THORACIC SPINE 3V 01/24/2020 11:22 AM INDICATION: Fall, back pain COMPARISON: None available. TECHNIQUE: 3 views of the thoracic spine 3 views lumbar spine are provided. FINDINGS/ IMPRESSION: 1. Minimal dextro convex curvature of the thoracic spine centered at T4-T5. Mild disc height loss at the upper thoracic spine. Moderate anterior and lateral marginal osteophytosis the thoracic spine. No acute fracture or compression deformity is visualized. 2. There are 5 nonrib-bearing lumbar type vertebral bodies. Minimal dextro convex curvature of the lumbar spine centered at L3-L4. There is minimal retrolisthesis of L2 on L3 and L3 on L4. Grade 1 anterolisthesis of L4 on L5. Moderate disc height loss is identified at L2-L3 and L4-L5. Minimal inferior endplate concavity at L2 without significant height loss (age indeterminate). If there is clinical concern for acute compression deformity, further evaluation with MRI may be of benefit. Moderate intramarginal osteophytosis at L3-L4. Moderate to advanced facet arthropathy is noted. Versus portions of the sacrum appear intact. Electronically signed by: Kobe Aguilera MD (01/24/2020 12:51 PM) [facility] DICTATED and SIGNED BY: KOBE AGUILERA MD DATE: 01/24/20 1251 [facility] [address] [place] [address] IMAGING REPORT Signed PATIENT: MARY LOU COLEMAN ACCOUNT: [id number] : 1930 LOCATION: ER AGE: 89 SEX: M EXAM STATUS: REG ER ORD. PHYSICIAN: JAQUELIN ALEXANDER APRN REASON: fall on , pain to right elbow PROCEDURE: ELBOW RIGHT 2V Examination: ELBOW RIGHT 2V History: Reason: fall on , pain to right elbow / Spl. Instructions: / History: Comparison/Correlation: None Findings: 2 views of the right elbow were obtained. Frontal view is limited due to partial flexion of the adrenal. True 90 degree lateral view of the right elbow is not provided. Osteopenia is present. Advanced degenerative changes of the right elbow joint are present. Spurring of the radial head noted. No displaced fracture or bone destruction. Minimal enthesopathy at the distal triceps tendon attachment site is noted. Bony densities anterior to the right elbow are present and of indeterminate significance. Impression: Advanced degenerative changes about the elbow. No suspicious fracture or bone destruction on this limited exam. Electronically signed by: Zafar Antonio MD (01/24/2020 12:10 PM) [id number] DICTATED and SIGNED BY: ZAFAR ANTONIO MD DATE: 01/24/20 1210 Assessment/Plan Assessment/Plan Right knee osteoarthritis. Right knee pain. Right knee effusion. 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 For the elbow no active treatment is needed. Consider ice pack or even heat. On the right knee I would recommend aspiration of the effusion and discussed that with the patient and his family. Would also inject corticosteroids. He has had that done previously, remotely, with good relief. Verbal and written consent was obtained. The skin was prepared in sterile fashion with a chlorhexidine swab. Topical ethyl chloride was used for skin anesthesia. 10 mL of 1% lidocaine was used for additional skin and subcutaneous and capsular anesthesia. I aspirated the knee under sterile technique and retrieved 50 mL bloody synovial from the knee joint consistent with osteoarthritis and recent trauma. I injected the knee with 80 mg of Depo-Medrol and 2 cc of 0.25% bupivicaine, under sterile technique. The patient tolerated the procedure well. A Band-Aid was placed. MARY LOU ESQUIVEL MD Jan 25, 2020 16:49
[2020-01-25 18:44] VITALS: BP 115/70
--- NOTE | 2020-01-25 18:55 | NUR ---
Dr. Gonzalez at bedside, aspirated 50 cc of blood tinged fluid from right knee. Pt tolerated well. Family at bedside. Bandaid placed and pt doing well.
[2020-01-25] MEDS: ATORVASTATIN CALCIUM 10 MG TABLET. PO SCH (20:45)
[2020-01-25] MEDS: LACTOBACILLUS RHAMNOSUS GG 1 CAPSULE. PO SCH (20:45)
[2020-01-25 23:43] VITALS: BP 127/78
[2020-01-26 03:47] VITALS: BP 127/71
[2020-01-26 06:51] LABS: BASO % 0 % (0-3); EOS % 0 % (0-3); HEMATOCRIT 42.6 % (39.0-53.0); HEMOGLOBIN 14.8 g/dL (13.0-17.5); LYMPH # 0.6 x10^3/uL (1.0-4.8); LYMPH % 6 % (24-48); MEAN CORPUSCULAR HEMOGLOBIN 35 pg (25-35); MEAN CORPUSCULAR HGB CONC 35 g/dL (31-37); MEAN CORPUSCULAR VOLUME 102 fL (79-100); MONO # 0.8 x10^3/uL (0.0-1.1); MONO % 7 % (0-9); NEUT # 9.4 x10^3/uL (1.8-7.7); NEUT % 87 % (31-73); PLATELET COUNT 139 x10^3/uL (140-400); RED CELL DISTRIBUTION WIDTH 13.3 % (11.5-14.5); WHITE BLOOD COUNT 10.8 x10^3/uL (4.0-11.0)
[2020-01-26 06:59] LABS: ALBUMIN 2.3 g/dL (3.4-5.0); ALBUMIN/GLOBULIN RATIO 0.6 (1.0-1.7); CREATININE 1.2 mg/dL (0.7-1.3); MAGNESIUM 2.1 mg/dL (1.8-2.4); TOTAL BILIRUBIN 1.3 mg/dL (0.2-1.0)
[2020-01-26 07:00] VITALS: BP 134/85
[2020-01-26] MEDS: ALBUTEROL SULFATE 2.5 MG/3 ML NEBU. NEB SCH ×3 (07:35→20:31)
[2020-01-26] MEDS: LACTOBACILLUS RHAMNOSUS GG 1 CAPSULE. PO SCH ×2 (07:55→21:29)
[2020-01-26] MEDS: POTASSIUM CHLORIDE 10 MEQ TABLET.ER. PO SCH (07:56)
[2020-01-26] MEDS: TAMSULOSIN 0.4 MG CAP.ER.24H. PO SCH ×2 (07:56→21:31)
[2020-01-26] MEDS: PANTOPRAZOLE 40 MG TABLET.DR. PO SCH (07:56)
[2020-01-26] MEDS: METOPROLOL TART IMMED RELEASE 25 MG TABLET. PO SCH ×2 (07:57→21:32)
[2020-01-26] MEDS: HYDROcodone/APAP 7.5/325MG 1 TAB TABLET PO PRN ×2 (08:07→21:31)
--- NOTE | 2020-01-26 09:25 | PDOC ---
Infectious Disease Note Subjective: Subjective pt doing ok no f/n/v/d still has rt knee pain Vital Signs: Vital Signs Vital Signs Date Time Temp Pulse Resp B/P (MAP) Pulse Ox O2 Delivery O2 Flow Rate FiO2 01/26/20 08:07 95 Room Air 01/26/20 07:57 88 127/71 01/26/20 07:00 98.0 16 98.0 Physical Exam: PHYSICAL EXAM GENERAL: Alert awake appears comfortable HEENT: Normal conjunctivae. Oropharynx pink and moist. Hard of hearing. NECK: Supple. LUNGS: Clear to auscultation. No accessory muscle use. HEART: S1, S2. ABDOMEN: Soft, nontender with bowel sounds present. EXTREMITIES: Venous stasis changes. The right knee is tender with effusion. Right elbow is tender, limited range of motion. SKIN: Warm to touch. No signs of rash. NEUROLOGIC: Alert and answering simple questions appropriately, but forgetful. Medications: Inpatient Meds: Current Medications Medications (Trade) Dose Ordered Sig/Micah Start Time Stop Time Status Last Admin Dose Admin Acetaminophen (Tylenol) 650 mg PRN Q6HRS PRN 01/25/20 09:45 Acetaminophen/ Hydrocodone Bitart (Lortab 7.5/325) 1 tab PRN Q4HRS PRN 01/24/20 20:15 01/26/20 08:07 1 TAB Albuterol Sulfate (Ventolin Neb Soln) 2.5 mg RTQID 01/25/20 12:00 02/01/20 11:59 01/26/20 07:35 2.5 MG Apixaban (Eliquis) 5 mg BID 01/24/20 21:00 01/25/20 10:46 DC 01/25/20 09:41 5 MG Atorvastatin Calcium (Lipitor) 10 mg QHS 01/24/20 21:00 01/25/20 20:45 10 MG Bupivacaine HCl (Sensorcaine-Mpf 0.25%) 10 ml 1X ONCE 01/25/20 16:45 01/25/20 16:46 UNV Ceftriaxone Sodium (Rocephin) 1 gm Q24H 01/25/20 14:00 01/25/20 13:55 1 GM Daptomycin 500 mg/ Sodium Chloride 50 ml @ 100 mls/hr 1X ONCE 01/25/20 15:15 01/25/20 15:44 DC 01/25/20 16:08 100 MLS/HR Furosemide (Lasix) 40 mg DAILY 01/25/20 09:00 01/25/20 10:46 DC 01/25/20 09:42 40 MG Info (Anti-Coagulation Monitoring By Pharmacy) 1 each PRN DAILY PRN 01/25/20 08:30 01/25/20 10:17 1 EACH Lactobacillus Rhamnosus (Culturelle) 1 cap BID 01/25/20 21:00 01/26/20 07:55 1 CAP Lidocaine HCl (Lidocaine 1% 20ml Vial) 20 ml 1X ONCE 01/25/20 16:45 01/25/20 16:46 UNV Methylprednisolone Acetate (DEPO-Medrol 80MG VIAL) 80 mg 1X ONCE 01/25/20 16:45 01/25/20 16:46 UNV Metoprolol Tartrate (Lopressor) 25 mg BID 01/24/20 21:00 01/26/20 07:57 25 MG Ondansetron HCl (Zofran) 4 mg PRN Q8HRS PRN 01/25/20 14:00 01/25/20 14:01 DC Pantoprazole Sodium (Protonix) 40 mg DAILYAC 01/25/20 07:30 01/26/20 07:56 40 MG Potassium Chloride (Klor-Con) 20 meq DAILYWBKFT 01/25/20 09:45 01/26/20 07:56 20 MEQ Sodium Chloride 1,000 ml @ 1,000 mls/hr 1X ONCE 01/24/20 14:45 01/24/20 15:44 DC 01/24/20 14:45 1,000 MLS/HR Tamsulosin HCl (Flomax) 0.4 mg BID 01/24/20 21:00 01/26/20 07:56 0.4 MG Labs: Lab Laboratory Tests Test 01/26/20 05:40 White Blood Count 10.8 x10^3/uL (4.0-11.0) Red Blood Count 4.20 x10^6/uL (4.30-5.70) Hemoglobin 14.8 g/dL (13.0-17.5) Hematocrit 42.6 % (39.0-53.0) Mean Corpuscular Volume 102 fL (79-100) Mean Corpuscular Hemoglobin 35 pg (25-35) Mean Corpuscular Hemoglobin Concent 35 g/dL (31-37) Red Cell Distribution Width 13.3 % (11.5-14.5) Platelet Count 139 x10^3/uL (140-400) Neutrophils (%) (Auto) 87 % (31-73) Lymphocytes (%) (Auto) 6 % (24-48) Monocytes (%) (Auto) 7 % (0-9) Eosinophils (%) (Auto) 0 % (0-3) Basophils (%) (Auto) 0 % (0-3) Neutrophils # (Auto) 9.4 x10^3/uL (1.8-7.7) Lymphocytes # (Auto) 0.6 x10^3/uL (1.0-4.8) Monocytes # (Auto) 0.8 x10^3/uL (0.0-1.1) Eosinophils # (Auto) 0.0 x10^3/uL (0.0-0.7) Basophils # (Auto) 0.0 x10^3/uL (0.0-0.2) Sodium Level 139 mmol/L (136-145) Potassium Level 4.0 mmol/L (3.5-5.1) Chloride Level 104 mmol/L (98-107) Carbon Dioxide Level 26 mmol/L (21-32) Anion Gap 9 (6-14) Blood Urea Nitrogen 26 mg/dL (8-26) Creatinine 1.2 mg/dL (0.7-1.3) Estimated GFR (Cockcroft-Gault) 57.0 BUN/Creatinine Ratio 22 (6-20) Glucose Level 176 mg/dL (70-99) Calcium Level 8.0 mg/dL (8.5-10.1) Magnesium Level 2.1 mg/dL (1.8-2.4) Total Bilirubin 1.3 mg/dL (0.2-1.0) Aspartate Amino Transf (AST/SGOT) 17 U/L (15-37) Alanine Aminotransferase (ALT/SGPT) 23 U/L (16-63) Alkaline Phosphatase 65 U/L (46-116) Total Protein 6.0 g/dL (6.4-8.2) Albumin 2.3 g/dL (3.4-5.0) Albumin/Globulin Ratio 0.6 (1.0-1.7) Objective: Assessment: Gram-positive bacteremia 1 out of 2 bottles present on admission ID and TASIA pending at this time UTI urine cultures pending Leukocytosis. Right knee effusion.s/p aspiration 01/24 Status post fall. Benign prostate hypertrophy. Dementia. Atrial fibrillation. Hypertension. Plan: Plan of Care cont Rocephin restart Dapto; discussed with pharmacy Follow-up ID and TASIA of GPC in blood culture; could be a contaminant f/u cultures Monitor labs/temp Maintain aspiration precautions d/w daugther and son at bedside d/w nursing BRADEN CURIEL MD Jan 26, 2020 09:25
[2020-01-26] MEDS ORDERED: DAPTOmycin (GENERIC) IVPB 500 MG in IV NORMAL SALINE 50ML 50 ML IV SCH ×2 (09:30→15:00)
--- NOTE | 2020-01-26 09:30 | EKG ---
[facility] [address] [place] [address] Test Date: 2020-01-24 Test Time: 12:06:14 Pat Name: MARY LOU COLEMAN Department: Room: Gender: M [employer]: : [id number] Requested By: JAQUELIN ALEXANDER Order Number: [id number] Reading MD: Measurements Intervals [place] Rate: 108 P: VT: QRS: -20 QRSD: 76 T: -2 QT: 332 QTc: 449 Interpretive Statements IRREGULAR RHYTHM, NO P-WAVE FOUND LEFTWARD AXIS QRS(T) CONTOUR ABNORMALITY CONSIDER ANTEROSEPTAL MYOCARDIAL DAMAGE POSSIBLY ABNORMAL ECG RI6.02 No previous ECG available for comparison
--- NOTE | 2020-01-26 09:30 | PDOC ---
IM PROGRESS NOTES- Subjective Subjective Complaints of right knee pain and right elbow pain. Denies any dysuria. Objective Vitals/I&O Vital Signs Date Time Temp Pulse Resp B/P (MAP) Pulse Ox O2 Delivery O2 Flow Rate FiO2 01/26/20 08:07 95 Room Air 01/26/20 07:57 88 127/71 01/26/20 07:00 98.0 16 98.0 I & O 01/25/20 01/25/20 01/26/20 15:00 23:00 07:00 Intake Total 100 ml Output Total 250 ml Balance -150 ml Physical Exam Physical Exam He is alert, oriented and forgetful. He is weak LUNGS: Decreased breath sounds at bases. CARDIOVASCULAR: S1, S2 irregular. ABDOMEN: Soft, nontender, no guarding, no rigidity. Bowel sounds present. EXTREMITIES: No edema of the lower extremities; however, he has 3-4+ swelling of the right knee. No bruising of the right knee noted and he also has some swelling of the right elbow posteriorly. Decreased range of motion of both right knee and elbow, especially the right knee. SKIN: The patient has some bruising. CENTRAL NERVOUS SYSTEM: Alert, but forgetful and has generalized weakness, unable to move all the extremities due to pain. He is also hard of hearing. Labs Laboratory Tests Test 01/26/20 05:40 White Blood Count 10.8 x10^3/uL (4.0-11.0) Red Blood Count 4.20 x10^6/uL (4.30-5.70) L Hemoglobin 14.8 g/dL (13.0-17.5) Hematocrit 42.6 % (39.0-53.0) Mean Corpuscular Volume 102 fL (79-100) H Mean Corpuscular Hemoglobin 35 pg (25-35) Mean Corpuscular Hemoglobin Concent 35 g/dL (31-37) Red Cell Distribution Width 13.3 % (11.5-14.5) Platelet Count 139 x10^3/uL (140-400) L Neutrophils (%) (Auto) 87 % (31-73) H Lymphocytes (%) (Auto) 6 % (24-48) L Monocytes (%) (Auto) 7 % (0-9) Eosinophils (%) (Auto) 0 % (0-3) Basophils (%) (Auto) 0 % (0-3) Neutrophils # (Auto) 9.4 x10^3/uL (1.8-7.7) H Lymphocytes # (Auto) 0.6 x10^3/uL (1.0-4.8) L Monocytes # (Auto) 0.8 x10^3/uL (0.0-1.1) Eosinophils # (Auto) 0.0 x10^3/uL (0.0-0.7) Basophils # (Auto) 0.0 x10^3/uL (0.0-0.2) Sodium Level 139 mmol/L (136-145) Potassium Level 4.0 mmol/L (3.5-5.1) Chloride Level 104 mmol/L (98-107) Carbon Dioxide Level 26 mmol/L (21-32) Anion Gap 9 (6-14) Blood Urea Nitrogen 26 mg/dL (8-26) Creatinine 1.2 mg/dL (0.7-1.3) Estimated GFR (Cockcroft-Gault) 57.0 BUN/Creatinine Ratio 22 (6-20) H Glucose Level 176 mg/dL (70-99) H Calcium Level 8.0 mg/dL (8.5-10.1) L Magnesium Level 2.1 mg/dL (1.8-2.4) Total Bilirubin 1.3 mg/dL (0.2-1.0) H Aspartate Amino Transferase (AST) 17 U/L (15-37) Alanine Aminotransferase (ALT) 23 U/L (16-63) Alkaline Phosphatase 65 U/L (46-116) Total Protein 6.0 g/dL (6.4-8.2) L Albumin 2.3 g/dL (3.4-5.0) L Albumin/Globulin Ratio 0.6 (1.0-1.7) L Laboratory Tests 01/26/20 05:40 Laboratory Tests 01/26/20 05:40 Meds Current Medications Medications (Trade) Dose Ordered Sig/Micah Route PRN Reason Start Time Stop Time Status Last Admin Dose Admin Ceftriaxone Sodium (Rocephin) 1 gm Q24H IVP 01/25/20 14:00 01/25/20 13:55 Potassium Chloride (Klor-Con) 20 meq DAILYWBKFT PO 01/25/20 09:45 01/26/20 07:56 Albuterol Sulfate (Ventolin Neb Soln) 2.5 mg RTQID NEB 01/25/20 12:00 02/01/20 11:59 01/26/20 07:35 Lactobacillus Rhamnosus (Culturelle) 1 cap BID PO 01/25/20 21:00 01/26/20 07:55 Daptomycin 500 mg/ Sodium Chloride 50 ml @ 100 mls/hr 1X ONCE IV 01/25/20 15:15 01/25/20 15:44 DC 01/25/20 16:08 Bupivacaine HCl (Sensorcaine-Mpf 0.25%) 10 ml 1X ONCE IJ 01/25/20 16:45 01/25/20 16:46 DC 01/25/20 16:45 Methylprednisolone Acetate (DEPO-Medrol 80MG VIAL) 80 mg 1X ONCE IM 01/25/20 16:45 01/25/20 16:46 DC 01/25/20 16:45 Lidocaine HCl (Lidocaine 1% 20ml Vial) 20 ml 1X ONCE INJ 01/25/20 16:45 01/25/20 16:46 DC 01/25/20 16:45 Assessment Assessment 1. Urinary tract infection. 2. Frequent falls. 3. Possible occult fracture of the right knee with large effusion, may be traumatic because the patient is also on Eliquis, although no discoloration of the skin noted. 4. Acute metabolic encephalopathy. 5. Right elbow swelling and history of trauma. 6. Hypertension. 7. History of diabetes. 8. Benign prostatic hypertrophy. 9. Hyperlipidemia. 10. Recent elevated PSA of 21. 11. Osteoarthritis. 12. Atrial fibrillation, chronic. 13. History of gastritis. 14. Abnormal liver function tests. 15. Physical deconditioning. PLAN: Hold Eliquis for now because of the possibility of bleeding in the joint. Consult PT, OT, ST. Start breathing treatment. Hold Lasix for now. Recheck labs in a.m. Consult Dr. Wood for Infectious Disease evaluation and management, Dr. Pitt for Rehab evaluation and management, and Dr. Thomas for Orthopedic Surgery evaluation and management. The patient has been started on IV Rocephin. The patient was given some fluids yesterday, but also has a history of fluid retention, so we will go cautiously but hold Lasix for now. Condition and treatment options extensively discussed with the patient and the family. Most likely, he may need to go to a senior living unit after he gets better. Continue to monitor his mental status. For details, please refer to the orders. Right knee swelling-Dr. Lugo aspirated 50 cc blood-tinged fluid. Give him 80 mg Depo-Medrol intra-articular injection. Right elbow pain and swelling. Continues to have significant pain. Diabetes mellitus-blood sugars are slightly higher. Monitor UTI-culture pending. Patient is on both IV Rocephin and daptomycin was added by the infectious disease specialist. Leukocytosis-improving Acute metabolic encephalopathy-improving slowly Osteoarthritis-PT OT. Will likely need to go to a senior living unit. Discussed with Dr. Youssef. Patient was able to walk in the hallway but requires help getting up. Condition, treatment and options discussed with the patient and the family. Plan Plan For more details regarding further plans, please refer to the orders. Justicifation of Admission Dx: Justifications for Admission: Justification of Admission Dx: Yes VENANCIO CHU MD Jan 26, 2020 09:30
[2020-01-26 10:58] VITALS: BP 121/66
--- NOTE | 2020-01-26 12:14 | NUR ---
SS following for discharge planning. SS reviewed pt chart and discussed with pt RN. Pt is from home with spouse and family and is currently on room air. Pt on IV Daptomycin and IV Rocephin. PT/OT recommended residential unit. SS met with pt and family in room and pt and pt's family reported that pt has been to residential unit before and they do NOT want pt to go to residential unit. Pt's family reported that they would like pt to return to home with family and home healthcare services with [facility], ; fax [phone]. Pt's RN present for discussion. SS will continue to follow for discharge planning.
[2020-01-26] MEDS: cefTRIAXone IV Push 1 GM VIAL. IVP SCH (14:00)
[2020-01-26 15:00] VITALS: BP 131/75
--- NOTE | 2020-01-26 17:55 | CONS ---
DATE OF CONSULTATION: 01/26/2020 ATTENDING PHYSICIAN: Lyndsey Garcia MD. REASON FOR CONSULTATION: The patient was seen at the request of Dr. Garcia for rehab evaluation. HISTORY OF PRESENT ILLNESS: This is an 89-year-old right-handed male, who lives at home with his , apparently getting more confused in the last 2 weeks or so. He was admitted on 01/25/2020. He apparently fell twice in the last week, last fall on 01/22 and injured his right elbow and knee and since then, he is having increased right knee swelling and pain and also right elbow pain and swelling interfering with his mobility. He had radiological studies, which revealed degenerative changes of both right knee and elbow and Dr. Gonzalez injected his right knee after aspirating about 50 mL of blood-tinged synovial fluid. The patient admits easing of his right knee pain to some degree. He still admits some pain in his right knee and right elbow. The patient had CT scan of his brain, lumbar spine x-rays and thoracic spine x-rays and x-rays of his pelvis and hip, which failed to reveal any acute abnormality. The patient had some degenerative disk disease changes in the lumbar spine. He was found with large quantities of leukocyte esterase and wbc's, being treated with tentative diagnosis of urinary tract infection. He was also noted with creatinine of 1.4. ALLERGIES: The patient is not known allergic to any medication. PAST MEDICAL HISTORY: Significant for atrial fibrillation, hypertension, hyperlipidemia, degenerative joint disease, carcinoma of colon, CEA level was 5.4 last week, also had a previous pneumothorax, colon polyps, diabetes, gastritis, abnormal liver function test, benign prostatic hypertrophy, hypertension, status post right colon resection in 2014, left total knee arthroplasty, appendectomy, pilonidal cystectomy. FAMILY HISTORY: Positive for hypertension. He lives at home with his . He had chronic decreased acuity of hearing. PHYSICAL EXAMINATION: The patient on physical examination today revealed an elderly male. He is alert, oriented to place and person, follows commands appropriately, moves all 4 extremities voluntarily where he had overall 4+/5 grade muscle strength, relative weakness around right elbow secondary to pain, tenderness to palpation at right elbow, both medial and lateral humeral epicondylar area and also over insertion of right triceps and he had crepitus on range of motion of his right elbow and right knee with tenderness to palpation over medial and lateral knee joint line and mild knee joint effusion. The patient had equal perception of touch and pinprick sensation bilaterally. Deep tendon reflexes are absent at both knees and ankles. The patient had multiple skin bruises. No significant pain on range of motion of his hip joints. The patient requires minimal assistance in coming to a standing position. Once up, he can walk with wide-based gait using a roller walker without any limping on his feet. ASSESSMENT: An elderly male with degenerative joint disease of right knee and right elbow with recent fall and sprain, right elbow and right knee, clinical evidence of peripheral neuropathy. The patient with known right colon resection for carcinoma, left total knee arthroplasty, atrial fibrillation, hypertension, hyperlipidemia, diabetes mellitus with peripheral neuropathy, benign prostatic hypertrophy. RECOMMENDATIONS: To get him up and walking using a right knee hinged brace, which he already had and when medically stable, home with home health followup. Dr. Garcia, I appreciate asking me to participate in the care of this interesting patient. I will be glad to see him for followup with you on as needed basis. SHAMEKA MILLER MD DR: ENEDINA/bill JOB#: [id number] / [id number]
[2020-01-26 19:00] VITALS: BP 144/91
[2020-01-26] MEDS: DOCUSATE SODIUM 100 MG CAPSULE. PO SCH (19:00)
[2020-01-26] MEDS: ATORVASTATIN CALCIUM 10 MG TABLET. PO SCH (21:29)
[2020-01-26 23:00] VITALS: BP 136/76
[2020-01-27 03:00] VITALS: BP 136/83
[2020-01-27 07:00] VITALS: BP 131/71
[2020-01-27] MEDS: ALBUTEROL SULFATE 2.5 MG/3 ML NEBU. NEB SCH (07:33)
[2020-01-27] MEDS: TAMSULOSIN 0.4 MG CAP.ER.24H. PO SCH (08:10)
[2020-01-27] MEDS: DOCUSATE SODIUM 100 MG CAPSULE. PO SCH (08:10)
[2020-01-27] MEDS: LACTOBACILLUS RHAMNOSUS GG 1 CAPSULE. PO SCH (08:10)
[2020-01-27] MEDS: METOPROLOL TART IMMED RELEASE 25 MG TABLET. PO SCH (08:11)
[2020-01-27] MEDS: PANTOPRAZOLE 40 MG TABLET.DR. PO SCH (08:11)
[2020-01-27] MEDS: POTASSIUM CHLORIDE 10 MEQ TABLET.ER. PO SCH (08:12)
--- NOTE | 2020-01-27 09:10 | PDOC ---
PROGRESS NOTES Subjective Subjective He feels better this AM. Objective Objective Vital Signs Date Time Temp Pulse Resp B/P (MAP) Pulse Ox O2 Delivery O2 Flow Rate FiO2 01/27/20 08:11 81 131/71 01/27/20 08:00 Room Air 01/27/20 07:33 94 01/27/20 03:00 97.9 18 97.9 Intake and Output 01/27/20 07:00 Intake Total 275 ml Output Total 2 ml Balance 273 ml Intake Oral 275 ml Output Urine Total 2 ml # Voids 5 Physical Exam Physical Exam He is sitting in bedside chair and he is moving both upper extremities actively and he did walk with right knee brace and roller walker in his room this AM as for family. Assessment Assessment Problems Medical Problems: (1) AMS (altered mental status) Status: Acute (2) UTI (urinary tract infection) Status: Acute Plan Plan of [facility] when medically stable. I gave him prescription for new right knee and elbow hinge support braces for his use while up walking and using his arm actively. Comment Review of Relevant I have reviewed the following items deirdre (where applicable) has been applied. Labs Laboratory Tests Test 01/26/20 05:40 White Blood Count 10.8 x10^3/uL (4.0-11.0) Red Blood Count 4.20 x10^6/uL (4.30-5.70) Hemoglobin 14.8 g/dL (13.0-17.5) Hematocrit 42.6 % (39.0-53.0) Mean Corpuscular Volume 102 fL (79-100) Mean Corpuscular Hemoglobin 35 pg (25-35) Mean Corpuscular Hemoglobin Concent 35 g/dL (31-37) Red Cell Distribution Width 13.3 % (11.5-14.5) Platelet Count 139 x10^3/uL (140-400) Neutrophils (%) (Auto) 87 % (31-73) Lymphocytes (%) (Auto) 6 % (24-48) Monocytes (%) (Auto) 7 % (0-9) Eosinophils (%) (Auto) 0 % (0-3) Basophils (%) (Auto) 0 % (0-3) Neutrophils # (Auto) 9.4 x10^3/uL (1.8-7.7) Lymphocytes # (Auto) 0.6 x10^3/uL (1.0-4.8) Monocytes # (Auto) 0.8 x10^3/uL (0.0-1.1) Eosinophils # (Auto) 0.0 x10^3/uL (0.0-0.7) Basophils # (Auto) 0.0 x10^3/uL (0.0-0.2) Sodium Level 139 mmol/L (136-145) Potassium Level 4.0 mmol/L (3.5-5.1) Chloride Level 104 mmol/L (98-107) Carbon Dioxide Level 26 mmol/L (21-32) Anion Gap 9 (6-14) Blood Urea Nitrogen 26 mg/dL (8-26) Creatinine 1.2 mg/dL (0.7-1.3) Estimated GFR (Cockcroft-Gault) 57.0 BUN/Creatinine Ratio 22 (6-20) Glucose Level 176 mg/dL (70-99) Calcium Level 8.0 mg/dL (8.5-10.1) Magnesium Level 2.1 mg/dL (1.8-2.4) Total Bilirubin 1.3 mg/dL (0.2-1.0) Aspartate Amino Transf (AST/SGOT) 17 U/L (15-37) Alanine Aminotransferase (ALT/SGPT) 23 U/L (16-63) Alkaline Phosphatase 65 U/L (46-116) Total Protein 6.0 g/dL (6.4-8.2) Albumin 2.3 g/dL (3.4-5.0) Albumin/Globulin Ratio 0.6 (1.0-1.7) Microbiology 01/24/20 Blood Culture - Preliminary, Resulted 01/24/20 Urine Culture - Final, Complete Medications Current Medications Ceftriaxone Sodium (Rocephin) 1 gm 1X ONCE IVP Last administered on 01/24/20at 14:30; Start 01/24/20 at 14:15; Stop 01/24/20 at 14:16; Status DC Sodium Chloride 1,000 ml @ 1,000 mls/hr 1X ONCE IV Last administered on 01/24/20at 14:45; Start 01/24/20 at 14:45; Stop 01/24/20 at 15:44; Status DC Ondansetron HCl (Zofran) 4 mg PRN Q8HRS PRN IV NAUSEA/VOMITING; Start 01/25/20 at 14:00; Stop 01/25/20 at 14:01; Status DC Ceftriaxone Sodium (Rocephin) 1 gm Q24H IVP Last administered on 01/26/20at 14:00; Start 01/25/20 at 14:00 Apixaban (Eliquis) 5 mg BID PO Last administered on 01/25/20 09:41; Start 01/24/20 at 21:00; Stop 01/25/20 at 10:46; Status DC Atorvastatin Calcium (Lipitor) 10 mg QHS PO Last administered on 01/26/20 21:29; Start 01/24/20 at 21:00 Furosemide (Lasix) 40 mg DAILY PO Last administered on 01/25/20at 09:42; Start 01/25/20 at 09:00; Stop 01/25/20 at 10:46; Status DC Metoprolol Tartrate (Lopressor) 25 mg BID PO Last administered on 01/27/20 08:11; Start 01/24/20 at 21:00 Tamsulosin HCl (Flomax) 0.4 mg BID PO Last administered on 01/27/20at 08:10; Start 01/24/20 at 21:00 Pantoprazole Sodium (Protonix) 40 mg DAILYAC PO Last administered on 01/27/20 08:11; Start 01/25/20 at 07:30 Potassium Chloride (Klor-Con) 10 meq DAILYWBKFT PO ; Start 01/25/20 at 08:00; Stop 01/25/20 at 09:41; Status DC Acetaminophen/ Hydrocodone Bitart (Lortab 7.5/325) 1 tab PRN Q4HRS PRN PO PAIN Last administered on 01/26/20 21:31; Start 01/24/20 at 20:15 Info (Anti-Coagulation Monitoring By Pharmacy) 1 each PRN DAILY PRN MC SEE COMMENTS Last administered on 01/25/20at 10:17; Start 01/25/20 at 08:30 Potassium Chloride (Klor-Con) 20 meq DAILYWBKFT PO Last administered on 01/27/20at 08:12; Start 01/25/20 at 09:45 Acetaminophen (Tylenol) 650 mg PRN Q6HRS PRN PO MILD PAIN / TEMP > 100.3'F; Start 01/25/20 at 09:45 Albuterol Sulfate (Ventolin Neb Soln) 2.5 mg RTQID NEB Last administered on 01/26/20at 11:24; Start 01/25/20 at 12:00; Stop 01/26/20 at 11:34; Status DC Lactobacillus Rhamnosus (Culturelle) 1 cap BID PO Last administered on 01/27/20at 08:10; Start 01/25/20 at 21:00 Daptomycin 500 mg/ Sodium Chloride 50 ml @ 100 mls/hr 1X ONCE IV Last administered on 01/25/20at 16:08; Start 01/25/20 at 15:15; Stop 01/25/20 at 15:44; Status DC Bupivacaine HCl (Sensorcaine-Mpf 0.25%) 10 ml 1X ONCE IJ Last administered on 01/25/20at 16:45; Start 01/25/20 at 16:45; Stop 01/25/20 at 16:46; Status DC Methylprednisolone Acetate (DEPO-Medrol 80MG VIAL) 80 mg 1X ONCE IM Last administered on 01/25/20at 16:45; Start 01/25/20 at 16:45; Stop 01/25/20 at 16:46; Status DC Lidocaine HCl (Lidocaine 1% 20ml Vial) 20 ml 1X ONCE INJ Last administered on 01/25/20at 16:45; Start 01/25/20 at 16:45; Stop 01/25/20 at 16:46; Status DC Methylprednisolone Acetate (DEPO-Medrol 80MG VIAL) 80 mg 1X ONCE INJ ; Start 01/25/20 at 16:45; Stop 01/25/20 at 16:46; Status UNV Lidocaine HCl (Lidocaine 1% 20ml Vial) 20 ml 1X ONCE INJ ; Start 01/25/20 at 16:45; Stop 01/25/20 at 16:46; Status UNV Bupivacaine HCl (Sensorcaine-Mpf 0.25%) 10 ml 1X ONCE IJ ; Start 01/25/20 at 16:45; Stop 01/25/20 at 16:46; Status UNV Daptomycin 500 mg/ Sodium Chloride 50 ml @ 100 mls/hr Q24H IV ; Start 01/26/20 at 09:30; Stop 01/26/20 at 09:27; Status DC Daptomycin 500 mg/ Sodium Chloride 50 ml @ 100 mls/hr Q24H IV Last administered on 01/26/20at 15:13; Start 01/26/20 at 15:00 Albuterol Sulfate (Ventolin Neb Soln) 2.5 mg RTBID NEB Last administered on 01/27/20at 07:33; Start 01/26/20 at 20:00 Docusate Sodium (Colace) 100 mg DAILY PO Last administered on 01/27/20at 08:10; Start 01/26/20 at 19:00 Active Scripts Active Reported Klor-Con 10 (Potassium Chloride) 10 Meq Tablet.er 10 Meq PO DAILY Lasix (Furosemide) 40 Mg Tablet 1 Tab PO DAILY 30 Days Metoprolol Tartrate 25 Mg Tablet 1 Tab PO BID Eliquis (Apixaban) 5 Mg Tablet 5 Mg PO BID Flomax (Tamsulosin Hcl) 0.4 Mg Cap.er.24h 1 Cap PO BID Omeprazole 20 Mg Capsule.dr 1 Cap PO DAILY Atorvastatin Calcium 10 Mg Tablet 10 Mg PO DAILY Vitals/I & O Vital Sign - Last 24 Hours 01/26/20 01/26/20 01/26/20 01/26/20 09:47 10:58 15:00 19:00 Temp 98.2 98.4 97.9 98.2 98.4 97.9 Pulse 65 94 106 Resp 16 16 18 B/P (MAP) 121/66 (84) 131/75 (93) 144/91 (108) Pulse Ox 95 96 95 95 O2 Delivery Room Air Room Air Room Air Room Air 01/26/20 01/26/20 01/26/20 01/26/20 20:32 20:38 21:31 21:32 Pulse 106 Resp 16 B/P (MAP) 144/91 Pulse Ox 95 O2 Delivery Room Air Room Air Room Air 01/26/20 01/26/20 01/27/20 01/27/20 22:31 23:00 03:00 07:33 Temp 97.8 97.9 97.8 97.9 Pulse 113 78 Resp 16 18 18 B/P (MAP) 136/76 (96) 136/83 (100) Pulse Ox 95 95 95 94 O2 Delivery Room Air Room Air Room Air Room Air 01/27/20 01/27/20 08:00 08:11 Pulse 81 B/P (MAP) 131/71 O2 Delivery Room Air Intake and Output0 01/26/20 01/26/20 01/27/20 15:00 23:00 07:00 Intake Total 225 ml 50 ml Output Total 1 ml 1 ml Balance 224 ml -1 ml 50 ml Justicifation of Admission Dx: Justifications for Admission: Justification of Admission Dx: Yes SHAMEKA MILLER MD Jan 27, 2020 09:10
--- NOTE | 2020-01-27 09:37 | PDOC ---
Infectious Disease Note Subjective: Subjective pt doing ok no f/n/v/d No dysuria Rt knee pain is better Vital Signs: Vital Signs Vital Signs Date Time Temp Pulse Resp B/P (MAP) Pulse Ox O2 Delivery O2 Flow Rate FiO2 01/27/20 08:11 81 131/71 01/27/20 08:00 Room Air 01/27/20 07:33 94 01/27/20 07:00 97.2 18 97.2 Physical Exam: PHYSICAL EXAM GENERAL: Alert awake appears comfortable HEENT: Normal conjunctivae. Oropharynx pink and moist. Hard of hearing. NECK: Supple. LUNGS: Clear to auscultation. No accessory muscle use. HEART: S1, S2. ABDOMEN: Soft, nontender with bowel sounds present. EXTREMITIES: Venous stasis changes. The right knee is tender with effusion. Right elbow is tender, limited range of motion. SKIN: Warm to touch. No signs of rash. NEUROLOGIC: Alert and answering simple questions appropriately, but forgetful. Medications: Inpatient Meds: Current Medications Medications (Trade) Dose Ordered Sig/Micah Start Time Stop Time Status Last Admin Dose Admin Acetaminophen (Tylenol) 650 mg PRN Q6HRS PRN 01/25/20 09:45 Acetaminophen/ Hydrocodone Bitart (Lortab 7.5/325) 1 tab PRN Q4HRS PRN 01/24/20 20:15 01/26/20 21:31 1 TAB Albuterol Sulfate (Ventolin Neb Soln) 2.5 mg RTBID 01/26/20 20:00 01/27/20 07:33 2.5 MG Apixaban (Eliquis) 5 mg BID 01/24/20 21:00 01/25/20 10:46 DC 01/25/20 09:41 5 MG Atorvastatin Calcium (Lipitor) 10 mg QHS 01/24/20 21:00 01/26/20 21:29 10 MG Bupivacaine HCl (Sensorcaine-Mpf 0.25%) 10 ml 1X ONCE 01/25/20 16:45 01/25/20 16:46 UNV Ceftriaxone Sodium (Rocephin) 1 gm Q24H 01/25/20 14:00 01/26/20 14:00 1 GM Daptomycin 500 mg/ Sodium Chloride 50 ml @ 100 mls/hr Q24H 01/26/20 15:00 01/26/20 15:13 100 MLS/HR Docusate Sodium (Colace) 100 mg DAILY 01/26/20 19:00 01/27/20 08:10 100 MG Furosemide (Lasix) 40 mg DAILY 01/25/20 09:00 01/25/20 10:46 DC 01/25/20 09:42 40 MG Info (Anti-Coagulation Monitoring By Pharmacy) 1 each PRN DAILY PRN 01/25/20 08:30 01/25/20 10:17 1 EACH Lactobacillus Rhamnosus (Culturelle) 1 cap BID 01/25/20 21:00 01/27/20 08:10 1 CAP Lidocaine HCl (Lidocaine 1% 20ml Vial) 20 ml 1X ONCE 01/25/20 16:45 01/25/20 16:46 UNV Methylprednisolone Acetate (DEPO-Medrol 80MG VIAL) 80 mg 1X ONCE 01/25/20 16:45 01/25/20 16:46 UNV Metoprolol Tartrate (Lopressor) 25 mg BID 01/24/20 21:00 01/27/20 08:11 25 MG Ondansetron HCl (Zofran) 4 mg PRN Q8HRS PRN 01/25/20 14:00 01/25/20 14:01 DC Pantoprazole Sodium (Protonix) 40 mg DAILYAC 01/25/20 07:30 01/27/20 08:11 40 MG Potassium Chloride (Klor-Con) 20 meq DAILYWBKFT 01/25/20 09:45 01/27/20 08:12 20 MEQ Sodium Chloride 1,000 ml @ 1,000 mls/hr 1X ONCE 01/24/20 14:45 01/24/20 15:44 DC 01/24/20 14:45 1,000 MLS/HR Tamsulosin HCl (Flomax) 0.4 mg BID 01/24/20 21:00 01/27/20 08:10 0.4 MG Objective: Assessment: Gram-positive bacteremia 1 out of 2 bottles present on admission ID , staph hominis, likely contaminant UTI urine cultures multiple organisms likely contaminant Leukocytosis. Improving Right knee effusion.s/p aspiration 01/24 with 50 mL bloody synovial from the knee joint attributed to recent trauma. Status post fall. Benign prostate hypertrophy. Dementia. Atrial fibrillation. Hypertension. Plan: Plan of Care DC Rocephin DC Dapto Monitor off antibiotic d/w nursing BRADEN CURIEL MD Jan 27, 2020 09:37
--- NOTE | 2020-01-27 10:27 | PDOC2 ---
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 Garcia SOURCE Source: Chart review, Patient HISTORY OF PRESENT ILLNESS HISTORY OF PRESENT ILLNESS This is an 89 yo male who presented secondary fall. UA notable for UTI. Has a history of AFIB. On Eliquis for stroke prophylaxis, which has been held due to knee effusion s/p drainage of bloody synovial fluid. Patient reports that he tripped with his walker, causing fall. Fell 5 days prior to admission the same way. No reports of dizziness, diaphoresis, chest pain, shortness of breath, or nausea/vomiting. PAST MEDICAL HISTORY Cardiovascular: AFIB, HTN, Hyperlipidemia, Other (PAD) Pulmonary: Pneumonia CENTRAL NERVOUS SYSTEM: Dementia GI: Diverticulosis, GERD Heme/Onc: Anemia NOS, Cancer (colon ) Musculoskeletal: Osteoarthritis Renal/: Chronic renal insuff, Benign prostatic enlarg., Other (urinary retention ) Endocrine: Diabetes PAST SURGICAL HISTORY Past Surgical History: Appendectomy SOCIAL HISTORY Smoke: No ALCOHOL: none Drugs: None Lives: with Family CURRENT MEDICATIONS CURRENT MEDICATIONS Current Medications Medications (Trade) Dose Ordered Sig/Micah Route PRN Reason Start Time Stop Time Status Last Admin Dose Admin Daptomycin 500 mg/ Sodium Chloride 50 ml @ 100 mls/hr Q24H IV 01/26/20 15:00 01/27/20 09:37 DC 01/26/20 15:13 Albuterol Sulfate (Ventolin Neb Soln) 2.5 mg RTBID NEB 01/26/20 20:00 01/27/20 07:33 Docusate Sodium (Colace) 100 mg DAILY PO 01/26/20 19:00 01/27/20 08:10 ALLERGIES ALLERGIES: Coded Allergies: No Known Drug Allergies (Unverified , 04/30/15) ROS Review of System 14 point ROS conducted with pertinent positives noted above in HPI PHYSICAL EXAM General: Alert, Oriented X3, Cooperative, No acute distress, Other (NAKNEK) Lungs: Clear to auscultation Heart: Regular rate Abdomen: Soft, No tenderness Extremities: Other (trace bilateral LE edema ) Neuro: Normal speech, Sensation intact Psych/Mental Status: Mental status NL, Mood NL MUSCULOSKELETAL: Osteoarthritic changes both hands VITALS/I&O VITALS/I&O: Vital Signs Date Time Temp Pulse Resp B/P (MAP) Pulse Ox O2 Delivery O2 Flow Rate FiO2 01/27/20 08:11 81 131/71 01/27/20 08:00 Room Air 01/27/20 07:33 94 01/27/20 07:00 97.2 18 97.2 I & O 01/26/20 01/26/20 01/27/20 15:00 23:00 07:00 Intake Total 225 ml 50 ml Output Total 1 ml 1 ml Balance 224 ml -1 ml 50 ml ASSESSMENT/PLAN ASSESSMENT/PLAN 1. Fall, traumatic wtih left knee effusion. S/p drainage of bloody synovial fluid. Eliquid held 2. Leukocytosis, UTI; antibioitics as per PCP 3. Encephalopathy; improved 4. PAFIB; presently SR 5. Hypertension; controlled 6. Hyperlipidemia; statin 7. Diabetes, II; as per PCP 8. ISSA on CKD; resolved Recommendations Continue metoprolol for rate control Discussed r/b/a of OAC versus ASA with patient and son/daughter. Patient has had 2 falls in the last week. Fortunately, has not hit his head. Given weakness and recurrent fall, recommend discontinuing OAC and placing on ASA therapy. Patient and family are agreeable Consider outpatient referral for JEFF closure device Resume Lasix upon discharge Okay to discharge. Follow in our office with Dr. Betancur as scheduled. XOCHILT BETANCUR MD 01/28/20 0943: CARDIAC CONSULT ASSESSMENT/PLAN ASSESSMENT/PLAN Patient seen and examined 01/27/20. Agree with GAMING CAGE CASHIER's assessment and plan. Patient with mechanical fall with left knee hemarthrosis s/p drainage PAF in SR. He is probably a poor anticoagulation candidate secondary to recurrent falls Agree with holding oral anticoagulation and starting aspirin. 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 Thank you for your consultation MIMA MALLOY APRN Jan 27, 2020 10:27 XOCHILT BETANCUR MD Jan 28, 2020 09:43
[2020-01-27 10:45] VITALS: BP 120/67
[2020-01-27] MEDS ORDERED: HYDR-2765 PO (10:45)
--- NOTE | 2020-01-27 10:47 | SNU/HH DC ---
DISCHARGE WITH HOME HEALTH DISCHARGE INFORMATION: Final Diagnosis: Problems Medical Problems: (1) AMS (altered mental status) Status: Acute (2) UTI (urinary tract infection) Status: Acute Condition on Discharge: Stable HOME HEALTH: Face to Face: I certify this patient is under my care and that I, or a nurse practitioner or physician's product safety technical assistant working with me, had a face to face encounter that meets the physician face to face encounter requirements with this patient on 01/27/20. RN For Eval/Treatment: Yes Physical Therapy For: Evalulation/Treatment Occupational Therapy For: Evaluation/Treatment Pt Meets Homebound Status: Poor coordination w/ amb. POST DISCHARGE ORDERS: Activity Instructions for Disc: No restrictions, Activity as tolerated (with walker) Weight Bearing Status after Di: No restrictions Bathing Instructions: Shower-keep dressing dry DIET AFTER DISCHARGE: Cardiac Wound/Incision Care: May get incision wet FOLLOW-UP: PCP to follow Home Health: yes Follow up with: dr.Pratip Chu in 5 days CERTIFICATION STATEMENT: Certification Statement: Certification Statement: Based on the above finding, I certify that this patient is confined to the home and needs intermittent retirement care, physical therapy and/or speech therapy, or continues to need occupational therapy.~ This patient is under my care, and I have initiated the establishment of the plan of care.~ This patient will be followed by myself or a community physician who will periodically review the plan of care. Home Meds Active Scripts Mirtazapine (MIRTAZAPINE) 7.5 Mg Tablet, 7.5 TAB PO QHS for anxiety for 30 Days, #30 TAB 0 Refills Prov:VENANCIO CHU MD 01/27/20 Escitalopram Oxalate (LEXAPRO) 5 Mg Tablet, 5 MG PO DAILY for anxiety for 30 Days, #30 TAB Prov:VENANCIO CHU MD 01/27/20 Hydrocodone Bit/Acetaminophen (HYDROCODONE-APAP 7.5-325 ) 1 Tab Tablet, 1 TAB PO PRN Q4HRS PRN for PAIN, #42 TAB Prov:VENANCIO CHU MD 01/27/20 Reported Medications Potassium Chloride (Klor-Con 10) 10 Meq Tablet.er, 10 MEQ PO DAILY for replacement , TAB.SR 01/24/20 Furosemide (LASIX) 40 Mg Tablet, 1 TAB PO DAILY for swelling for 30 Days, #30 TAB 0 Refills 01/24/20 Metoprolol Tartrate (METOPROLOL TARTRATE) 25 Mg Tablet, 1 TAB PO BID for HTN, #180 TAB 1 Refill 01/24/20 Apixaban (ELIQUIS) 5 Mg Tablet, 5 MG PO BID for Afib, TAB 01/24/20 Tamsulosin Hcl (FLOMAX) 0.4 Mg Cap.er.24h, 1 CAP PO BID for BPH, #30 CAP 11 Refills 01/24/20 Omeprazole (OMEPRAZOLE) 20 Mg Capsule.dr, 1 CAP PO DAILY, #30 CAP 5 Refills 04/30/15 Atorvastatin Calcium (ATORVASTATIN CALCIUM) 10 Mg Tablet, 10 MG PO DAILY for FOR CHOLESTEROL, #30 TAB 0 Refills 04/30/15 Discontinued Reported Medications Furosemide (LASIX) 20 Mg Tablet, 1 TAB PO DAILY, #90 TAB 1 Refill 05/24/15 Tamsulosin Hcl (TAMSULOSIN HCL) 0.4 Mg Cap.er.24h, 1 CAP PO DAILY, #30 CAP 5 Refills 04/30/15 Dabigatran Etexilate Mesylate (PRADAXA) 150 Mg Capsule, 1 CAP PO BID, #180 CAP 3 Refills 04/30/15 Sotalol Hcl (SOTALOL) 80 Mg Tablet, 1 TAB PO BID, #60 TAB 5 Refills 04/30/15 Amlodipine Besylate (AMLODIPINE BESYLATE) 5 Mg Tablet, 5 MG PO DAILY, TAB 04/30/15 VENANCIO CHU MD Jan 27, 2020 10:47
--- NOTE | 2020-01-27 11:27 | PDOC3 ---
DISCHARGE SUMMARY Date of Admission Date of Admission Date of Admission: Jan 24, 2020 at 14:36 Date of Discharge Date of Discharge January 27, 2020 Primary Diagnosis Primary Diagnosis 1. Urinary tract infection. 2. Frequent falls. 3. Possible occult fracture of the right knee with large effusion, may be traumatic because the patient is also on Eliquis, although no discoloration of the skin noted. Traumatic hematoma 4. Acute metabolic encephalopathy. 5. Right elbow swelling and history of trauma. 6. Hypertension. 7. History of diabetes. 8. Benign prostatic hypertrophy. 9. Hyperlipidemia. 10. Recent elevated PSA of 21. 11. Osteoarthritis. 12. Atrial fibrillation, chronic. 13. History of gastritis. 14. Abnormal liver function tests. 15. Physical deconditioning. Consults Consults Rafael Thomas II, MD; Kamryn Pitt MD; Mingo Gong MD; Isauro Betancur MD Brief hospital course Brief hospital course This 89-year-old male who lives at home with his . He is becoming more confused for the last week or so. He does have some cognitive deficits, but he is quite confused. He also fell twice in last 1 week as per the family. He fell 3 days ago on and hurt his right elbow and knee and since then, his right knee is much more swollen and painful and he is not able to ambulate. His right elbow is also swollen and painful. It is not clear if he had had trauma, but family does not think so. He has been on Eliquis. He denies any bleeding. Because of his change in mental status and falls and swelling of the right knee with inability to ambulate, the patient was brought to the Emergency Room. In the Emergency Room, the patient had CT scan of head that was negative for any acute bleeds. He had a chest x-ray that is negative for any acute changes. He had multiple x-rays including those of right elbow, right forearm, cervical spine, CT spine of head, lumbar spine x-rays, thoracic spine x-rays, hip and pelvis x-rays and knee x-rays, especially of the right knee and these do not show any fracture. Some of them do show degenerative changes. Lumbar spine does show some loss of disk height at least at 2 levels. Urinalysis showed positive nitrite, large leukocyte esterase, WBC too numerous to count, urine bacteria 0. Sodium was 140, potassium 3.5, BUN 24, creatinine 1.4, bilirubin was 2.5, albumin 3. WBC count 14.5, hemoglobin 16.6, platelet count 138,000. Today platelet count is 129,000. Because of his complicated UTI with recent elevated PSA of 21, change in mental status, frequent falls with severe swelling of the right knee and inability to ambulate, the patient has been admitted for further evaluation and management. For more details regarding the past history, family history, social history, surgical history and other details, please refer to History and Physical. Hold Eliquis for now because of the possibility of bleeding in the joint. Consult PT, OT, ST. Start breathing treatment. Hold Lasix for now. Recheck labs in a.m. Consult Dr. Gong for Infectious Disease evaluation and management, Dr. Pitt for Rehab evaluation and management, and Dr. Thomas for Orthopedic Surgery evaluation and management. The patient has been started on IV Rocephin. The patient was given some fluids yesterday, but also has a history of fluid retention, so we will go cautiously but hold Lasix for now. Condition and treatment options extensively discussed with the patient and the family. Most likely, he may need to go to a penitentiary unit after he gets better. Continue to monitor his mental status. For details, please refer to the orders. Right knee swelling-Dr. Lugo aspirated 50 cc blood-tinged fluid. Give him 80 mg Depo-Medrol intra-articular injection. Swelling is much better and patient is able to walk with walker but still needs assistance. Right elbow pain and swelling. Continues to have significant pain. has prescribed braces for both his right ankle and knee. Diabetes mellitus-blood sugars are slightly higher. Monitor UTI-culture pending. Patient is on both IV Rocephin and daptomycin was added by the infectious disease specialist. Urine culture showed multiple organisms due to contamination Blood culture 1 out of 2 positive is staph hominis contaminant. Dr. Hardin has discontinued both Rocephin and daptomycin. If an oral antibiotic is needed she will prescribe it. Leukocytosis-improving Acute metabolic encephalopathy-improving slowly Osteoarthritis-PT OT. Continue hydrocodone as needed. Dementia with behavioral disturbances-start Lexapro 5 mg daily and mirtazapine 7.5 mg daily at bedtime low-dose. Side effects extensively discussed with the patient and the family. Condition, treatment and options discussed with the patient and the family. Family wants to take him home with home health services and does not want to go to penitentiary unit. Advised him to see me in the office next week. Medications Current Medications Medications (Trade) Dose Ordered Sig/Micah Route PRN Reason Start Time Stop Time Status Last Admin Dose Admin Daptomycin 500 mg/ Sodium Chloride 50 ml @ 100 mls/hr Q24H IV 01/26/20 15:00 01/27/20 09:37 DC 01/26/20 15:13 Albuterol Sulfate (Ventolin Neb Soln) 2.5 mg RTBID NEB 01/26/20 20:00 01/27/20 07:33 Docusate Sodium (Colace) 100 mg DAILY PO 01/26/20 19:00 01/27/20 08:10 Medications reviewed and reconciled for discharge. Allergy Allergies Coded Allergies Type Severity Reaction Last Updated Verified No Known Drug Allergies 04/30/15 No Follow up in 5 days. DISPOSITION: Home health services Comments Discharge Management - 35 minutes. For other details please refer to discharge instructions Justicifation of Admission Dx: Justifications for Admission: Justification of Admission Dx: Yes VENANCIO CHU MD Jan 27, 2020 11:27
[2020-01-27] MEDS ORDERED: MIRT7.5T8 PO (11:29)
[2020-01-27] MEDS ORDERED: ESCITALOPRAM OXA5 MG PO (11:29)
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
[2020-01-28] MEDS ORDERED: ASPIRIN ENTERIC COATED 81 MG TABLET.DR. PO SCH (08:00)
== END 2020-01-27 15:02 | disposition home health service (06) | DRG 689 ==
LOC: ER 10:24 → 2 NORTH 14:36
PROVIDERS: ADMIT Internal Medicine; ATTEND Internal Medicine
DX: N39.0 Urinary tract infection, site not specified (principal); G93.41 Metabolic encephalopathy; N17.9 Acute kidney failure, unspecified; M25.062 Hemarthrosis, left knee; F03.91 Unspecified dementia, unspecified severity, with behavioral disturbance; I48.20 Chronic atrial fibrillation, unspecified; M17.11 Unilateral primary osteoarthritis, right knee; S50.01XA Contusion of right elbow, initial encounter; K21.9 Gastro-esophageal reflux disease without esophagitis; E78.5 Hyperlipidemia, unspecified; N40.0 Benign prostatic hyperplasia without lower urinary tract symptoms; R29.6 Repeated falls; R94.5 Abnormal results of liver function studies; R32 Unspecified urinary incontinence; I25.10 Atherosclerotic heart disease of native coronary artery without angina pectoris; N18.9 Chronic kidney disease, unspecified; I12.9 Hypertensive chronic kidney disease with stage 1 through stage 4 chronic kidney disease, or unspecified chronic kidney disease; H91.90 Unspecified hearing loss, unspecified ear; E11.22 Type 2 diabetes mellitus with diabetic chronic kidney disease; M19.021 Primary osteoarthritis, right elbow; E11.51 Type 2 diabetes mellitus with diabetic peripheral angiopathy without gangrene; I48.0 Paroxysmal atrial fibrillation; E11.42 Type 2 diabetes mellitus with diabetic polyneuropathy; M43.16 Spondylolisthesis, lumbar region; Z96.652 Presence of left artificial knee joint; T14.8XXA Other injury of unspecified body region, initial encounter; M51.36 Other intervertebral disc degeneration, lumbar region; W01.0XXA Fall on same level from slipping, tripping and stumbling without subsequent striking against object, initial encounter; Y93.89 Activity, other specified; Y92.098 Other place in other non-institutional residence as the place of occurrence of the external cause; Y99.8 Other external cause status; Z87.891 Personal history of nicotine dependence; Z85.828 Personal history of other malignant neoplasm of skin; Z85.00 Personal history of malignant neoplasm of unspecified digestive organ; Z79.01 Long term (current) use of anticoagulants; Z90.49 Acquired absence of other specified parts of digestive tract; Z98.49 Cataract extraction status, unspecified eye; Z87.19 Personal history of other diseases of the digestive system; Z85.048 Personal history of other malignant neoplasm of rectum, rectosigmoid junction, and anus; Z82.49 Family history of ischemic heart disease and other diseases of the circulatory system
CPT/HCPCS: 36415; 70450; 71045; 72072; 72100; 72125; 73070; 73090; 73521; 73562; 80053; 81001; 83605; 83735; 84484; 85007; 85025; 87040; 87077; 87086; 87186; 87205; 93005; 94640; 96361; 96374; J0696; J0878; J1040; J3490; J7030; 97530-GO; 97535-GO; 99285-25; G0378; J7613